=== PATIENT | female | born 1965 | race Caucasian/White ===

== ENCOUNTER 2020-08-22 13:20 | Emergency (ER) | payer MEDICAID, OTHER ==
[~2020-08-22] VITALS: Ht 149 cm; Wt 80.0 kg
[2020-08-22] MEDS ORDERED: methylPREDNISolone 125 MG (Solu-MEDROL) VIAL IVP STA (13:36)
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
[2020-08-22] MEDS ORDERED: RT-ALBUTEROL/IPRATROPIUM 3 ML (DUONEB) VIAL INH ONE (13:45)
[2020-08-22 13:50] LABS: BASOPHILS % (AUTO) 1 % (0-10); EOSINOPHILS % (AUTO) 1 % (0-10); HEMATOCRIT 53 % (35-52); HEMOGLOBIN 17.9 G/DL (11.5-16.0); LYMPHOCYTES # (AUTO) 1.3 X 10^3 (1.0-4.0); LYMPHOCYTES % (AUTO) 24 % (12-44); MEAN CORPUSCULAR HEMOGLOBIN 29 PG (25-34); MEAN CORPUSCULAR HGB CONC 34 G/DL (32-36); MEAN CORPUSCULAR VOLUME 88 FL (80-99); MONOCYTES # (AUTO) 0.5 X 10^3 (0.0-1.0); MONOCYTES % (AUTO) 10 % (0-12); NEUTROPHILS # (AUTO) 3.4 X 10^3 (1.8-7.8); NEUTROPHILS % (AUTO) 64 % (42-75); PLATELET COUNT 180 10^3/uL (130-400); WHITE BLOOD COUNT 5.3 10^3/uL (4.3-11.0)
--- NOTE | 2020-08-22 13:57 | Diagnostic Imaging Report ---
CLINICAL INDICATION: Patient with cough, shortness of breath, nausea, vomiting, and lethargy. EXAM: Portable chest x-ray, upright view. COMPARISONS: None. FINDINGS: Lungs/pleura: There are increased lung markings throughout both lung flores and slight subtle airspace opacities with the left lung base affected the most. This may represent underlying infiltrate. There is no lung consolidation. There is no pneumothorax. There is no pleural effusion. Mediastinum: Unremarkable. Pulmonary vasculature: Unremarkable. Heart: Unremarkable. Bones/extrathoracic soft tissue: There are degenerative spurs involving the spine. Surgical clips are seen overlying the right upper quadrant which could be related to cholecystectomy changes. IMPRESSION: There are subtle airspace opacities and increased lung markings involving both lung flores with the left basilar region affected the most. These findings may represent lung infiltrates. Chest x-ray with PA and lateral views with good inspiratory effort may help better evaluate, if necessary. Dictated by: Dictated on workstation # [id number]
[2020-08-22 14:20] LABS: CARBON DIOXIDE 19 MMOL/L (21-32); CHLORIDE 110 MMOL/L (98-107); POTASSIUM 3.7 MMOL/L (3.6-5.0); SODIUM 139 MMOL/L (135-145)
[2020-08-22 14:21] LABS: ALANINE AMINOTRANSFERASE 11 U/L (0-55); ALBUMIN 4.1 GM/DL (3.2-4.5); ALKALINE PHOSPHATASE 75 U/L (40-136); BILIRUBIN,TOTAL 0.3 MG/DL (0.1-1.0); BUN/CREATININE RATIO 10; CALCIUM 9.2 MG/DL (8.5-10.1); CREATININE SERUM 0.68 MG/DL (0.60-1.30); GFR ESTIMATED > 60; GLUCOSE 112 MG/DL (70-105); TOTAL PROTEIN 7.2 GM/DL (6.4-8.2)
--- NOTE | 2020-08-22 14:40 | Diagnostic Imaging Report ---
EXAMINATION: Chest 2 view HISTORY: Cough and shortness of breath COMPARISON: Chest radiograph 08/22/2020 FINDINGS: Heart size and pulmonary vasculature are normal. There is no consolidation, pleural effusion, or pneumothorax. Opacities seen within the left lung base on prior radiograph are not seen on this exam and likely were related to attenuation from the soft tissues or resolved atelectasis. The osseous structures are intact. IMPRESSION: 1. No acute radiographic abnormality in the chest. Dictated by: Dictated on workstation # [id number]
[2020-08-22 15:35] LABS: INSPIRED O2 2 L; VENTILATOR NO
[2020-08-22 15:36] LABS: ALLENS TEST YES-POS
[2020-08-22 15:42] LABS: ABG BASE EXCESS -2.2 MMOL/L (-2.5-2.5); ABG OXYGEN SATURATION 85 % (94-100); ABG PCO2 37 MMHG (35-45); ABG PH 7.39 (7.37-7.43); ABG PO2 51 MMHG (79-93); ABG TCO2 23.5 MMOL/L (21.0-31.0)
[2020-08-22 16:36] VITALS: BP 132/66
[2020-08-22] MEDS ORDERED: RT-ALBUINH INH ×2 (16:37→17:16)
[2020-08-22] MEDS ORDERED: PRD20T PO ×2 (16:37→17:16)
== END 2020-08-22 16:38 | disposition left against medical advice (07) ==
LOC: ER FS 13:25
DX: J44.1 Chronic obstructive pulmonary disease with (acute) exacerbation (principal); R09.02 Hypoxemia; E66.9 Obesity, unspecified; F17.210 Nicotine dependence, cigarettes, uncomplicated
CPT/HCPCS: 36415; 71045; 71046; 80053; 82805; 85025; 86141

== ENCOUNTER 2020-11-16 11:36 | Emergency (ER) | payer MEDICAID ==
[~2020-11-16] VITALS: Ht 147 cm; Wt 76.1 kg
[~2020-11-16 11:36] MED LIST: PRD20T PO; RT-ALBUINH INH
--- NOTE | 2020-11-16 11:51 | ED General ---
General Chief Complaint: Psych/Social Disorder Stated Complaint: SUICIDAL IDEATION Source of Information: Patient Exam Limitations: No Limitations History of Present Illness Date Seen by Provider: Nov 16, 2020 Time Seen by Provider: 11:45 Initial Comments Patient is a 55-year-old female who presents with suicidal ideation and gesture. Patient states she has a history of depression and has felt lonely and upset that her family does not seem to care about her wash to spend time with her. Patient lives next-door to family and sees them daily but feels as though they do not check up on her and are not concerned about her well being. Patient abraded her right wrist the dog knife with a superficial abrasion only on exam. She denies wanting to or wanting to kill herself but states she feels depressed hurt. Denies hallucinations, delusions, paranoia and homicidal ideation. No recent medical illnesses. Denies drugs and alcohol. She is compliant with medication and sees her therapist every 2 weeks. Timing/Duration: 2-3 Days Severity: Moderate Modifying Factors: improves with Other Associated Systoms: Other Allergies and Home Medications Allergies Coded Allergies: Sulfa (Sulfonamide Antibiotics) (Verified Allergy, Unknown, 08/22/20) divalproex sodium (Verified Allergy, Unknown, 11/16/20) trazodone (Verified Allergy, Unknown, 11/16/20) Patient Home Medication List Home Medication List Reviewed: Yes Albuterol Sulfate (Ventolin Hfa) 1 Puff Puff, 2 PUFF INH Q4H PRN for WHEEZING Prescribed by: SUMAN LOCKWOOD on 08/22/201715 Prednisone (Prednisone) 20 Mg Tab, 40 MG PO DAILY Prescribed by: SUMAN LOCKWOOD on 08/22/20 171 Review of Systems Review of Systems Constitutional: see HPI EENTM: see HPI Respiratory: see HPI Cardiovascular: see HPI Gastrointestinal: see HPI Genitourinary: see HPI Musculoskeletal: see HPI Skin: see HPI Psychiatric/Neurological: See HPI Hematologic/Lymphatic: See HPI Immunological/Allergic: see HPI All Other Systems Reviewed Negative Unless Noted: Yes Past Sfjsuui-Jgjtbe-Gdlcxi Hx Patient Social History Tobacco Use?: Yes Seasonal Allergies Seasonal Allergies: No Past Medical History Surgeries: Yes Gallbladder Respiratory: Yes Asthma, COPD Cardiac: No Neurological: No Genitourinary: No Gastrointestinal: No Musculoskeletal: No Endocrine: No HEENT: No Cancer: No Psychosocial: Yes Anxiety Integumentary: No Physical Exam Vital Signs Vital Signs - First Documented 11/16/20 11:45 Temp 36.6 Pulse 62 Resp 18 B/P (MAP) 114/72 (86) Pulse Ox 96 O2 Delivery Room Air Capillary Refill : Height, Weight, BMI Height: '" Weight: lbs. oz. kg; 36.00 BMI Method: General Appearance: No Apparent Distress, WD/WN Eyes: Bilateral Eye Normal Inspection, Bilateral Eye PERRL, Bilateral Eye EOMI HEENT: PERRL/EOMI Neck: Full Range of Motion, Normal Inspection, Non Tender, Supple Respiratory: Lungs Clear Cardiovascular: Regular Rate, Rhythm Gastrointestinal: Non Tender, Soft Back: Normal Inspection, No CVA Tenderness Neurologic/Psychiatric: Alert, Oriented x3, No Motor/Sensory Deficits, Normal Mood/Affect, Depressed Affect, Other (No HI SI paranoia or hallucinations.) Skin: Normal Color Focused Exam Sepsis Stage: Ruled Out Progress/Results/Core Measures Suspected Sepsis SIRS Temperature: Pulse: Respiratory Rate: Laboratory Tests 11/16/20 12:10: White Blood Count 6.5 Blood Pressure / Mean: Laboratory Tests 11/16/20 12:10: Creatinine 0.83, Platelet Count 204, Total Bilirubin 0.4 Results/Orders Lab Results Laboratory Tests Test 11/16/20 11:50 11/16/20 12:10 11/16/20 12:20 Range/Units Urine Color YELLOW Urine Clarity SLT CLOUDY Urine pH 5.5 5-9 Urine Specific [place] 1.025 H 1.016-1.022 Urine Protein NEGATIVE NEGATIVE Urine Glucose (UA) NEGATIVE NEGATIVE Urine Ketones TRACE H NEGATIVE Urine Nitrite NEGATIVE NEGATIVE Urine Bilirubin NEGATIVE NEGATIVE Urine Urobilinogen 0.2 < = 1.0 MG/DL Urine Leukocyte Esterase NEGATIVE NEGATIVE Urine RBC (Auto) 1+ H NEGATIVE Urine RBC 0-2 /HPF Urine WBC RARE /HPF Urine Squamous Epithelial Cells RARE /HPF Urine Crystals NONE /LPF Urine Bacteria TRACE /HPF Urine Casts NONE /LPF Urine Mucus NEGATIVE /LPF Urine Culture Indicated NO Urine Opiates Screen POSITIVE H NEGATIVE Urine Oxycodone Screen NEGATIVE NEGATIVE Urine Methadone Screen NEGATIVE NEGATIVE Urine Propoxyphene Screen NEGATIVE NEGATIVE Urine Barbiturates Screen NEGATIVE NEGATIVE Ur Tricyclic Antidepressants Screen NEGATIVE NEGATIVE Urine Phencyclidine Screen NEGATIVE NEGATIVE Urine Amphetamines Screen NEGATIVE NEGATIVE Urine Methamphetamines Screen NEGATIVE NEGATIVE Urine Benzodiazepines Screen NEGATIVE NEGATIVE Urine Cocaine Screen NEGATIVE NEGATIVE Urine Cannabinoids Screen POSITIVE H NEGATIVE White Blood Count 6.5 4.3-11.0 10^3/uL Red Blood Count 5.64 H 3.80-5.11 10^6/uL Hemoglobin 16.5 H 11.5-16.0 g/dL Hematocrit 50 35-52 % Mean Corpuscular Volume 89 80-99 fL Mean Corpuscular Hemoglobin 29 25-34 pg Mean Corpuscular Hemoglobin Concent 33 32-36 g/dL Red Cell Distribution Width 12.9 10.0-14.5 % Platelet Count 204 130-400 10^3/uL Mean Platelet Volume 10.2 9.0-12.2 fL Immature Granulocyte % (Auto) 0 % Neutrophils (%) (Auto) 63 42-75 % Lymphocytes (%) (Auto) 30 12-44 % Monocytes (%) (Auto) 6 0-12 % Eosinophils (%) (Auto) 1 0-10 % Basophils (%) (Auto) 1 0-10 % Neutrophils # (Auto) 4.1 1.8-7.8 X 10^3 Lymphocytes # (Auto) 1.9 1.0-4.0 X 10^3 Monocytes # (Auto) 0.4 0.0-1.0 X 10^3 Eosinophils # (Auto) 0.0 0.0-0.3 10^3/uL Basophils # (Auto) 0.0 0.0-0.1 10^3/uL Immature Granulocyte # (Auto) 0.0 0.0-0.1 10^3/uL Sodium Level 139 135-145 MMOL/L Potassium Level 4.1 3.6-5.0 MMOL/L Chloride Level 105 98-107 MMOL/L Carbon Dioxide Level 24 21-32 MMOL/L Anion Gap 10 5-14 MMOL/L Blood Urea Nitrogen 9 7-18 MG/DL Creatinine 0.83 0.60-1.30 MG/DL Estimat Glomerular Filtration Rate 71 BUN/Creatinine Ratio 11 Glucose Level 105 70-105 MG/DL Calcium Level 9.3 8.5-10.1 MG/DL Corrected Calcium 9.4 8.5-10.1 MG/DL Total Bilirubin 0.4 0.1-1.0 MG/DL Aspartate Amino Transf (AST/SGOT) 14 5-34 U/L Alanine Aminotransferase (ALT/SGPT) 12 0-55 U/L Alkaline Phosphatase 73 40-136 U/L Total Protein 6.9 6.4-8.2 GM/DL Albumin 3.9 3.2-4.5 GM/DL Serum Alcohol < 10 <10 MG/DL SARS-CoV-2 RNA (RT-PCR) Not Detected Not Detecte My Orders Orders - MAI DIANE DO Ua Culture If Indicated (11/16/20 11:51) Drug Screen Stat (Urine) (11/16/20 11:51) Alcohol (11/16/20 11:51) Cbc With Automated Diff (11/16/20 11:51) Comprehensive Metabolic Panel (11/16/20 11:51) Ekg Tracing (11/16/20 12:16) Covid 19 Inhouse Test (11/16/20 12:17) Vital Signs/I&O 11/16/20 11:45 Temp 36.6 Pulse 62 Resp 18 B/P (MAP) 114/72 (86) Pulse Ox 96 O2 Delivery Room Air Capillary Refill : Departure Communication (Admissions) EKG: Normal sinus rhythm, no acute ST-T wave changes. Patient remorseful in the ED. States she does not intend to harm her self or wish to at this time. She states she was here with the family members did not check on her and feels as though she needs more emotional support. Mental health screening exam performed by social media strategist. Recommendations are for increased outpatient support and close follow-up. Patient agrees with home safety plan. Return precautions reviewed. Patient verbalizes understanding agreement discharge instructions prior to departure. Impression Primary Impression: Mood disorder Additional Impression: Abrasion of left wrist Disposition: HOME, SELF-CARE Condition: Stable Departure-Patient Inst. Referrals: DAVON CASTELAN MD (PCP/Family) Primary Care Physician Patient Instructions: Depression, Adult ED Add. Discharge Instructions: Please follow home safety plan instructions and follow-up with your case loader operator and therapist later this week. Return to the ED if new or worsening symptoms. All discharge instructions reviewed with patient and/or family. Voiced understanding. MAI DIANE DO Nov 16, 2020 11:51
[2020-11-16 12:12] LABS: AMPHETAMINE SCREEN, URINE NEGATIVE (NEGATIVE); BARBITURATE SCREEN URINE NEGATIVE (NEGATIVE); BENZODIAZEPINES SCREEN URINE NEGATIVE (NEGATIVE); CANNABINOID SCREEN, URINE POSITIVE (NEGATIVE); COCAINE SCREEN URINE NEGATIVE (NEGATIVE); METHADONE STAT NEGATIVE (NEGATIVE); METHAMPHETAMINE SCREEN URINE S NEGATIVE (NEGATIVE); OPIATE SCREEN URINE POSITIVE (NEGATIVE); OXYCODONE STAT NEGATIVE (NEGATIVE); PROPOXYPHENE STAT NEGATIVE (NEGATIVE); TRICYCLIC ANTIDEPRESSANTS SCRE NEGATIVE (NEGATIVE)
[2020-11-16 12:13] LABS: CLARITY,URINE SLT CLOUDY; COLOR,URINE YELLOW; GLUCOSE, URINE (UA) NEGATIVE (NEGATIVE); PH,URINE 5.5 (5-9); PROTEIN,URINE NEGATIVE (NEGATIVE)
[2020-11-16 12:14] LABS: BACTERIA,URINE TRACE /HPF; BILIRUBIN,URINE NEGATIVE (NEGATIVE); KETONES,URINE TRACE (NEGATIVE); LEUKOCYTE ESTERASE ,URINE NEGATIVE (NEGATIVE); NITRITE,URINE NEGATIVE (NEGATIVE); RBC,URINE 0-2 /HPF; SQUAMOUS EPITHELIAL CELL,UR RARE /HPF; WBC,URINE RARE /HPF
[2020-11-16 12:33] LABS: HEMATOCRIT 50 % (35-52); HEMOGLOBIN 16.5 g/dL (11.5-16.0); MEAN CORPUSCULAR HEMOGLOBIN 29 pg (25-34); MEAN CORPUSCULAR HGB CONC 33 g/dL (32-36); MEAN CORPUSCULAR VOLUME 89 fL (80-99); MEAN PLATELET VOLUME 10.2 fL (9.0-12.2); PLATELET COUNT 204 10^3/uL (130-400); WHITE BLOOD COUNT 6.5 10^3/uL (4.3-11.0)
[2020-11-16 12:34] LABS: BASOPHILS % (AUTO) 1 % (0-10); EOSINOPHILS % (AUTO) 1 % (0-10); LYMPHOCYTES # (AUTO) 1.9 X 10^3 (1.0-4.0); LYMPHOCYTES % (AUTO) 30 % (12-44); MONOCYTES # (AUTO) 0.4 X 10^3 (0.0-1.0); MONOCYTES % (AUTO) 6 % (0-12); NEUTROPHILS # (AUTO) 4.1 X 10^3 (1.8-7.8); NEUTROPHILS % (AUTO) 63 % (42-75)
[2020-11-16 12:49] LABS: BUN/CREATININE RATIO 11; CALCIUM 9.3 MG/DL (8.5-10.1); CARBON DIOXIDE 24 MMOL/L (21-32); CHLORIDE 105 MMOL/L (98-107); CREATININE SERUM 0.83 MG/DL (0.60-1.30); GFR ESTIMATED 71; GLUCOSE 105 MG/DL (70-105); POTASSIUM 4.1 MMOL/L (3.6-5.0); SODIUM 139 MMOL/L (135-145)
[2020-11-16 12:50] LABS: ALANINE AMINOTRANSFERASE 12 U/L (0-55); ALBUMIN 3.9 GM/DL (3.2-4.5); ALKALINE PHOSPHATASE 73 U/L (40-136); BILIRUBIN,TOTAL 0.4 MG/DL (0.1-1.0); TOTAL PROTEIN 6.9 GM/DL (6.4-8.2)
[2020-11-16 15:38] VITALS: BP 118/64
== END 2020-11-16 15:35 | disposition home or self-care (01) ==
LOC: EDUNIT# 11:36 → ER FS 11:37
DX: S60.812A Abrasion of left wrist, initial encounter (principal); F39 Unspecified mood [affective] disorder; J44.9 Chronic obstructive pulmonary disease, unspecified; Z20.822 Contact with and (suspected) exposure to COVID-19; W26.8XXA Contact with other sharp object(s), not elsewhere classified, initial encounter
CPT/HCPCS: 36415; 80053; 80306; 81000; 85025; 87636; 93005; 99283; G0480; 80320

== ENCOUNTER 2020-12-31 13:13 | Inpatient (IN) | payer MEDICAID ==
[~2020-12-31] VITALS: Ht 145 cm; Wt 79.4 kg
[2020-12-31] MEDS ORDERED: ONDANSETRON 4 MG/2 ML (SDV) Z0FRAN IV ONE (13:30)
[2020-12-31] MEDS ORDERED: NS IV 1000 ML 1,000 ML IV SCH (13:30)
[2020-12-31] MEDS ORDERED: KETOROLAC 30 MG/ML VIAL IVP STA (13:34)
[2020-12-31] MEDS ORDERED: PANTOPRAZOLE 40 MG (PROTONIX) VIAL IV STA (13:34)
--- NOTE | 2020-12-31 13:34 | ED General ---
General Stated Complaint: N/V/D Source of Information: Patient, EMS, Old Records History of Present Illness Date Seen by Provider: Dec 31, 2020 Time Seen by Provider: 13:13 Initial Comments 55-year-old female presenting by EMS with complaints of severe headache that is in frontal forehead region, nausea, vomiting, diarrhea. She states this is been going on since Saturday. She feels like her symptoms are worsening or not improving. She does not have a vehicle or away to get to the hospital wound clinic. She finally had EMS bring her to the emergency department today. She has had chills but no fever. She does not have a way to check her temperature at home. She denies any pain with urination. She states she is having at least 4 or 5 watery stools a day. She is vomiting whenever she tries to eat or drink anything. She states that she has not been able to keep down her medication for her psychosis. She continues to smoke cigarettes. She has some diffuse abdominal cramping. She denies any blood in her diarrhea or vomiting. She has just watery diarrhea stool. She denies any ill contacts. Timing/Duration: 4-5 Days Severity: Severe Modifying Factors: worse with Movement Associated Systoms: No Chest Pain, No Cough, No Diaphoresis; Fever/Chills (chills without fever), Headaches (frontal forhead headache since Sat28 Dec 2020.), Malaise, Nausea/Vomiting; No Rash, No Seizure; Shortness of Air (chronic from COPD. Continues to smoke. Was on O2 when lived in [place]. ); No Syncope; Weakness (generalized weakness ) Allergies and Home Medications Allergies Coded Allergies: Sulfa (Sulfonamide Antibiotics) (Verified Allergy, Unknown, 08/22/20) divalproex sodium (Verified Allergy, Unknown, 11/16/20) trazodone (Verified Allergy, Unknown, 11/16/20) Patient Home Medication List Home Medication List Reviewed: Yes Albuterol Sulfate (Ventolin Hfa) 1 Puff Puff, 2 PUFF INH Q4H PRN for WHEEZING Prescribed by: SUMAN LOCKWOOD on 08/22/201715 Prednisone (Prednisone) 20 Mg Tab, 40 MG PO DAILY Prescribed by: SUMAN LOCKWOOD on 08/22/201715 Review of Systems Review of Systems Constitutional: chills; No diaphoresis, No dizziness, No fever; malaise, weakness EENTM: no symptoms reported Respiratory: cough (chronic), short of breath (chronic) Cardiovascular: No chest pain Gastrointestinal: see HPI, abdominal pain (diffuse cramping), diarrhea; No melena; nausea, vomiting Genitourinary: decreased output; No dysuria Musculoskeletal: no symptoms reported Skin: No rash Psychiatric/Neurological: See HPI Past [id number] Hx Patient Social History Tobacco Use?: Yes Tobacco type used: Cigarettes Smoking Status: Current Everyday Smoker Seasonal Allergies Seasonal Allergies: No Past Medical History Surgery/Hospitalization HX: COPD Surgeries: Yes Gallbladder, Hysterectomy Respiratory: Yes Asthma, COPD Cardiac: No Neurological: No Genitourinary: No Gastrointestinal: No Musculoskeletal: No Endocrine: No HEENT: No Cancer: No Psychosocial: Yes Anxiety Integumentary: No Physical Exam Vital Signs Vital Signs - First Documented 12/31/20 13:14 Temp 36.4 Pulse 84 Resp 19 B/P (MAP) 134/85 (101) Pulse Ox 83 O2 Delivery Nasal Cannula O2 Flow Rate 2.00 Capillary Refill : Height, Weight, BMI Height: '" Weight: lbs. oz. kg; 35.00 BMI Method: General Appearance: No Apparent Distress HEENT: PERRL/EOMI, Pharynx Normal Neck: Full Range of Motion, Normal Inspection, Non Tender, Supple Respiratory: Chest Non Tender, No Accessory Muscle Use, No Respiratory Distress, Decreased Breath Sounds Cardiovascular: Regular Rate, Rhythm, Normal Peripheral Pulses Gastrointestinal: Normal Bowel Sounds, No Pulsatile Mass, Soft; No Distended, No Guarding, No Rebound; Tenderness (diffuse mild tenderness worse in midline) Rectal: Deferred Extremity: Normal Capillary Refill, Normal Inspection, No Pedal Edema Neurologic/Psychiatric: Alert, Oriented x3, animal anatomist II-XII Norm as Tested Skin: Normal Color, Warm/Dry Focused Exam Lactate Level 12/31/20 13:45: Lactic Acid Level 0.98 Lactic Acid Level Laboratory Tests Test 12/31/20 13:45 Lactic Acid Level 0.98 MMOL/L (0.50-2.00) Progress/Results/Core Measures Suspected Sepsis SIRS Temperature: Pulse: Respiratory Rate: Laboratory Tests 12/31/20 13:30: White Blood Count 3.0L Blood Pressure / Mean: 12/31/20 13:45: Lactic Acid Level 0.98 Laboratory Tests 12/31/20 13:30: Creatinine 0.68, INR Comment 1.0, Platelet Count 108L, Total Bilirubin 0.3 Results/Orders Lab Results Laboratory Tests Test 12/31/20 13:30 12/31/20 13:45 12/31/20 13:48 12/31/20 15:29 Range/Units White Blood Count 3.0 L 4.3-11.0 10^3/uL Red Blood Count 6.19 H 3.80-5.11 10^6/uL Hemoglobin 18.3 H 11.5-16.0 g/dL Hematocrit 53 H 35-52 % Mean Corpuscular Volume 85 80-99 fL Mean Corpuscular Hemoglobin 30 25-34 pg Mean Corpuscular Hemoglobin Concent 35 32-36 g/dL Red Cell Distribution Width 13.2 10.0-14.5 % Platelet Count 108 L 130-400 10^3/uL Mean Platelet Volume 10.7 9.0-12.2 fL Immature Granulocyte % (Auto) 0 % Neutrophils (%) (Auto) 61 42-75 % Lymphocytes (%) (Auto) 30 12-44 % Monocytes (%) (Auto) 8 0-12 % Eosinophils (%) (Auto) 0 0-10 % Basophils (%) (Auto) 1 0-10 % Neutrophils # (Auto) 1.8 1.8-7.8 X 10^3 Lymphocytes # (Auto) 0.9 L 1.0-4.0 X 10^3 Monocytes # (Auto) 0.3 0.0-1.0 X 10^3 Eosinophils # (Auto) 0.0 0.0-0.3 10^3/uL Basophils # (Auto) 0.0 0.0-0.1 10^3/uL Percent Immature Platelet Fraction 3.0 0.0-7.6 % Prothrombin Time 13.6 12.2-14.7 SEC INR Comment 1.0 0.8-1.4 Activated Partial Thromboplast Time 34 24-35 SEC Sodium Level 137 135-145 MMOL/L Potassium Level 3.3 L 3.6-5.0 MMOL/L Chloride Level 104 98-107 MMOL/L Carbon Dioxide Level 23 21-32 MMOL/L Anion Gap 10 5-14 MMOL/L Blood Urea Nitrogen 9 7-18 MG/DL Creatinine 0.68 0.60-1.30 MG/DL Estimat Glomerular Filtration Rate 90 BUN/Creatinine Ratio 13 Glucose Level 148 H 70-105 MG/DL Calcium Level 8.8 8.5-10.1 MG/DL Corrected Calcium 8.7 8.5-10.1 MG/DL Total Bilirubin 0.3 0.1-1.0 MG/DL Aspartate Amino Transf (AST/SGOT) 22 5-34 U/L Alanine Aminotransferase (ALT/SGPT) 13 0-55 U/L Alkaline Phosphatase 73 40-136 U/L Troponin I < 0.30 <0.30 NG/ML C-Reactive Protein 5.04 H <0.50 MG/DL Total Protein 7.2 6.4-8.2 GM/DL Albumin 4.1 3.2-4.5 GM/DL Serum Alcohol < 10 <10 MG/DL Lactic Acid Level 0.98 0.50-2.00 MMOL/L Influenza Type A Antigen NEGATIVE NEGATIVE Influenza Type B Antigen NEGATIVE NEGATIVE Urine Color YELLOW Urine Clarity CLEAR Urine pH 6.0 5-9 Urine Specific [place] 1.010 L 1.016-1.022 Urine Protein 1+ H NEGATIVE Urine Glucose (UA) NEGATIVE NEGATIVE Urine Ketones NEGATIVE NEGATIVE Urine Nitrite NEGATIVE NEGATIVE Urine Bilirubin NEGATIVE NEGATIVE Urine Urobilinogen 0.2 < = 1.0 MG/DL Urine Leukocyte Esterase NEGATIVE NEGATIVE Urine RBC (Auto) 1+ H NEGATIVE Urine RBC 5-10 H /HPF Urine WBC 0-2 /HPF Urine Squamous Epithelial Cells 5-10 /HPF Urine Crystals NONE /LPF Urine Bacteria FEW H /HPF Urine Casts NONE /LPF Urine Mucus NEGATIVE /LPF Urine Culture Indicated NO Urine Opiates Screen NEGATIVE NEGATIVE Urine Oxycodone Screen NEGATIVE NEGATIVE Urine Methadone Screen NEGATIVE NEGATIVE Urine Propoxyphene Screen NEGATIVE NEGATIVE Urine Barbiturates Screen NEGATIVE NEGATIVE Ur Tricyclic Antidepressants Screen NEGATIVE NEGATIVE Urine Phencyclidine Screen NEGATIVE NEGATIVE Urine Amphetamines Screen NEGATIVE NEGATIVE Urine Methamphetamines Screen NEGATIVE NEGATIVE Urine Benzodiazepines Screen NEGATIVE NEGATIVE Urine Cocaine Screen NEGATIVE NEGATIVE Urine Cannabinoids Screen POSITIVE H NEGATIVE My Orders Orders - SUMAN LOCKWOOD MD Monitor-Rhythm Ecg Trace Only (12/31/20 13:26) Ed Iv/Invasive Line Start (12/31/20 13:26) Cbc With Automated Diff (12/31/20 13:26) Comprehensive Metabolic Panel (12/31/20 13:26) Crp Fs (12/31/20 13:26) Troponin I Fs (12/31/20 13:26) Protime With Inr (12/31/20:) Partial Thromboplastin Time (12/31/20:) Ekg Tracing (12/31/20:) Ns Iv 1000 Ml (Sodium Chloride 0.9%) (12/31/20 13:30) Ondansetron Injection (Zofran Injectio (12/31/20 13:30) Blood Culture (12/31/20:) Ua Culture If Indicated (12/31/20:) Drug Screen Stat (Urine) (12/31/20:) Alcohol (12/31/20:) Covid 19 Inhouse Test (12/31/20:) Influenza A & B Antigens (12/31/20:) Lactic Acid Analyzer (12/31/20:) O2 (12/31/20 13:30) Ct Judi Chest/Noang Abd-Pelv W (12/31/20 13:30) Ct Head Wo (12/31/20 13:34) Ketorolac Injection (Toradol Injection) (12/31/20 13:34) Pantoprazole Injection (Protonix Injecti (12/31/20 13:34) Iohexol Injection (Omnipaque 350 Mg/Ml 1 (12/31/20 13:45) Received Contrast (Hold Metformin- Contr (12/31/20 13:45) Sodium Chloride Flush (Catheter Flush Sy (12/31/20 13:45) Ns (Ivpb) (Sodium Chloride 0.9% Ivpb Bag (12/31/20 13:45) Azithromycin Injection (Zithromax Inject (12/31/20 16:42) Ns Iv 1000 Ml (Sodium Chloride 0.9%) (12/31/20 16:42) Dexamethasone Injection (Decadron Inje (12/31/20 16:42) Fentanyl Inj (Sublimaze Injection) (12/31/20 16:42) Cefepime Injection (Maxipime Injection) (12/31/20 16:51) Arterial Blood Gas (12/31/20 16:51) Medications Given in ED Current Medications Medications Dose Ordered Sig/Karla Route Start Time Stop Time Status Last Admin Dose Admin Iohexol 100 ml ONCE ONCE IV 12/31/20 13:45 12/31/20 13:46 DC 12/31/20 14:25 100 ML Ondansetron HCl 4 mg ONCE ONCE IV 12/31/20 13:30 12/31/20 13:31 DC 12/31/20 13:42 4 MG Sodium Chloride 10 ml NEEDED PRN IV 12/31/20 13:45 12/31/20 14:25 10 ML Sodium Chloride 100 ml ONCE ONCE IV 12/31/20 13:45 12/31/20 13:46 DC 12/31/20 14:25 100 ML Vital Signs/I&O 12/31/20 12/31/20 12/31/20 13:14 13:15 18:05 Temp 36.4 Pulse 84 69 Resp 19 17 B/P (MAP) 134/85 (101) 106/51 Pulse Ox 83 93 95 O2 Delivery Nasal Cannula Nasal Cannula Nasal Cannula O2 Flow Rate 2.00 2.00 2.00 Capillary Refill : Progress Note #1: Progress Note With complaint of chills, frontal forehad headache, nausea, vomiting and diarrhea will obtain Covid swab and influenza swab. Give IVF for hydration. Check labs to evaluate blood count, electrolytes, renal and hepatic function. ECG with her complaint of shortness of breath and not being able to keep anything down for 3 days. UA to help assess hydration status. Blood cultures and lactic acid since she reports chills and abdominal cramping with her n/v/d. Give IVF for hydration, Zofran for nausea, Toradol for pain. CT scan of head since she reports this is severe. CT scan of chest angiography with her complaint of short of breath, CT abd/pelvis with contrast to evaluate for diverticulitis, colitis, appendicitis, bowel obstruction, abdominal abscess. Progress Note #2: Progress Note Labs shows low white blood cell count but could be consistent with a viral infection. Her influenza swab was negative. Her hemoglobin was elevated to 18.3 which could go along with her being a smoker as well as possibly a little hemoconcentrated since she reports been able to keep anything down for the last 3 days. Her chemistry panel had mild hypokalemia of 3.3. Otherwise her kidney function and hepatic function appeared stable. Her cardiac enzymes did not show acute significant abnormality but her CRP was elevated. Her lactic acid was normal. The CT of the head showed sphenoid sinusitis. Her CT of the chest abdomen and pelvis showed no pulmonary emboli or acute process in the abdomen and pelvis but she did have groundglass patchy infiltrates in bilateral upper lobes of the lungs concerning for Covid. She was tolerating some p.o. intake here in the ED however she was continuing to require oxygen to maintain sats above 87-88%. Progress Note #3: Time: 16:50 Progress Note As patient has signs of infiltrate on her lungs will send gluing machine offbearer to have the Covid swab run this afternoon. We will also start antibiotics to help cover for potential atypical infection with her COPD. Since she is requiring oxygen IV fluids will contact the provider for [facility] since she follows with Dr. Castelan. Discussed with Dr. Arzola and she accepted the patient for admission. She recommended cefepime instead of Rocephin for antibiotic coverage. She was okay with the Zithromax. She also requested at least a cardiac stepdown bed to be able to monitor the patient closer since she was a smoker and had COPD if this was Covid she certainly was at higher risk of decompensating. ECG Initial ECG Impression Date: Dec 31, 2020 Initial ECG Impression Time: 13:35 Initial ECG Rate: 77 Initial ECG Rhythm: Normal Sinus Initial ECG Comparisson: Unchanged Comment Normal sinus rhythm with a heart rate of 77 bpm. NE interval [address] elevation. QT interval 387 ms with a QTc interval 450 ms. Appears similar to prior tracings in the system. Diagnostic Imaging Diagonstic Imaging: CT Plain Films/CT/US/NM/MRI: head Comments [facility] [place], [place] NAME: LUCIEN RICHARDSON [facility] REC#: [id number] PT STATUS: REG ER : 1965 PHYSICIAN: SUMAN LOCKWOOD MD ADMIT DATE: 12/31/20/ER FS Signed Date of Exam:12/31/20 CT HEAD WO EXAMINATION: CT head without contrast. TECHNIQUE: Multiple contiguous axial images were obtained through the brain without the use of intravenous contrast. All CT scans use one or more of the following dose optimizing techniques: automated exposure control, MA and/or KvP adjustment based on patient size and exam type or iterative reconstruction. HISTORY: Frontal headache. COMPARISON: None available. FINDINGS: No large acute territorial ischemia, mass, or hemorrhage. No midline shift or mass effect. The ventricles, cortical sulci, and basilar cisterns are patent and unremarkable. The orbits are normal. Retained secretions are seen in the left maxillary sinus with mild mucosal thickening throughout the paranasal sinuses. Frothy secretions are seen in the right sphenoid sinus. Mastoid air cells are clear. No soft tissue abnormality is seen. No osseus lesions or fractures are seen. IMPRESSION: 1. No large acute territorial ischemia, mass, or hemorrhage. 2. Findings suggestive of acute sinusitis involving the right sphenoid sinus. Dictated by: Dictated on workstation # [id number] Dict: 12/31/20 1428 Trans: 12/31/20 1438 [facility] [id number] Interpreted by: BRAD MANLEY DO Electronically signed by: BRAD MANLEY DO 12/31/208 Reviewed: Reviewed by Ok Diagonstic Imaging: CT Plain Films/CT/US/NM/MRI: chest, abdomen, pelvis Comments [facility] [place] NAME: LUCIEN RICHARDSON [facility] REC#: [id number] PT STATUS: REG ER : 1965 PHYSICIAN: SUMAN LOCKWOOD MD ADMIT DATE: 12/31/20/ER FS Signed Date of Exam:12/31/20 CT JUDI CHEST/NOANG ABD-PELV W INDICATION: hypoxia, sob, n/v/d, chills EXAM: CTA chest, abdomen and pelvis TECHNIQUE: Thin axial sections through the chest, abdomen and pelvis are obtained following intravenous contrast bolus. Multiplanar MIP images were reconstructed and reviewed. All CT scans use one or more of the following dose optimizing techniques: automated exposure control, MA and/or KvP adjustment based on patient size and exam type or iterative reconstruction. INDICATION: Hypoxia, shortness of breath, nausea vomiting and diarrhea COMPARISON: None available. FINDINGS: CTA CHEST: No pulmonary emboli. Normal caliber thoracic aorta without dissection. Heart is normal in size without pericardial effusion. No pleural effusion or pneumothorax. No intrathoracic lymphadenopathy. Patchy groundglass opacities are present in the upper lobes. No features of pulmonary edema. No concerning focal osseous lesions. CT ABDOMEN AND PELVIS: No free intraperitoneal air or fluid. The liver, spleen, pancreas and adrenals are normal. Status post cholecystectomy. Horseshoe kidney is present without renal mass or obstruction. No renal or ureteral stones. Urinary bladder is normal. Hysterectomy. No adnexal mass. No pericolonic inflammatory change to indicate diverticulitis or colitis. Appendix is normal. No abdominal or pelvic lymphadenopathy. Normal caliber abdominal aorta. IMPRESSION: 1. No acute pulmonary emboli or aortic dissection. 2. Patchy ground glass opacities in the bilateral upper lobes most compatible with infection and could potentially be COVID 19. 3. No acute intra-abdominal process. Report was faxed to [facility] Infection Control by radha at 2:38pm. Dictated by: Dictated on workstation # [id number] Dict: 12/31/20 1432 Trans: 12/31/20 1510 [facility] [id number] Interpreted by: PEBBLES HOLDEN MD Electronically signed by: PEBBLES HOLDEN MD 12/31/20 1510 Reviewed: Reviewed by Ok Departure Communication (Admissions) Time/Spoke to Admitting Phy: 16:50 D/w Dr. Arzola and she accepted pt for admit. Will add on ABG. She requested Cefepime with Zithromax for antibiotic coverage for lung infiltrate seen on CT. PUI for Covid and COPD exacerbation with sphenoid sinusitis. Will place in Cardiac Step down or ICU bed Impression Primary Impression: Hypoxia Additional Impressions: Severe frontal headaches Nausea vomiting and diarrhea COPD with exacerbation Infiltrate of upper lobe of right lung present on imaging study Infiltrate of upper lobe of left lung present on imaging study Person under investigation for severe acute respiratory syndrome coronavirus 2 (SARS-CoV-2) infection Sphenoid sinusitis Qualified Codes: J01.30 - Acute sphenoidal sinusitis, unspecified Disposition: 30 STILL A PATIENT Condition: Stable Admissions Decision to Admit Reason: Admit from ER (General) Decision to Admit/Date: Dec 31, 2020 Time/Decision to Admit Time: 16:50 Departure-Patient Inst. Referrals: DAVON CASTELAN MD (PCP/Family) Primary Care Physician SUMAN LOCKWOOD MD Dec 31, 2020 13:34
[2020-12-31 13:37] LABS: BASOPHILS % (AUTO) 1 % (0-10); EOSINOPHILS % (AUTO) 0 % (0-10); HEMATOCRIT 53 % (35-52); HEMOGLOBIN 18.3 g/dL (11.5-16.0); LYMPHOCYTES # (AUTO) 0.9 X 10^3 (1.0-4.0); LYMPHOCYTES % (AUTO) 30 % (12-44); MEAN CORPUSCULAR HEMOGLOBIN 30 pg (25-34); MEAN CORPUSCULAR HGB CONC 35 g/dL (32-36); MEAN CORPUSCULAR VOLUME 85 fL (80-99); MEAN PLATELET VOLUME 10.7 fL (9.0-12.2); MONOCYTES # (AUTO) 0.3 X 10^3 (0.0-1.0); MONOCYTES % (AUTO) 8 % (0-12); NEUTROPHILS # (AUTO) 1.8 X 10^3 (1.8-7.8); NEUTROPHILS % (AUTO) 61 % (42-75); PLATELET COUNT 108 10^3/uL (130-400)
[2020-12-31] MEDS ORDERED: HOLD METFORMIN - RECEIVED CONTRAST 20 ML VIAL IV SCH (13:45)
[2020-12-31] MEDS ORDERED: CATHETER FLUSH 10 ML SYR IV PRN (13:45)
[2020-12-31] MEDS ORDERED: IOHEXOL 350 MG/ML 100 ML (OMNIPAQUE 350) VIAL IV ONE (13:45)
[2020-12-31] MEDS ORDERED: NS 100 ML (IVPB) BAG IV ONE (13:45)
[2020-12-31 13:48] LABS: PROTHROMBIN TIME PATIENT 13.6 SEC (12.2-14.7)
[2020-12-31 13:56] LABS: ALANINE AMINOTRANSFERASE 13 U/L (0-55); ALBUMIN 4.1 GM/DL (3.2-4.5); ALKALINE PHOSPHATASE 73 U/L (40-136); BILIRUBIN,TOTAL 0.3 MG/DL (0.1-1.0); BUN/CREATININE RATIO 13; CALCIUM 8.8 MG/DL (8.5-10.1); CARBON DIOXIDE 23 MMOL/L (21-32); CHLORIDE 104 MMOL/L (98-107); CREATININE SERUM 0.68 MG/DL (0.60-1.30); GFR ESTIMATED 90; GLUCOSE 148 MG/DL (70-105); POTASSIUM 3.3 MMOL/L (3.6-5.0); SODIUM 137 MMOL/L (135-145); TOTAL PROTEIN 7.2 GM/DL (6.4-8.2)
--- NOTE | 2020-12-31 14:36 | Diagnostic Imaging Report ---
EXAMINATION: CT head without contrast. TECHNIQUE: Multiple contiguous axial images were obtained through the brain without the use of intravenous contrast. All CT scans use one or more of the following dose optimizing techniques: automated exposure control, MA and/or KvP adjustment based on patient size and exam type or iterative reconstruction. HISTORY: Frontal headache. COMPARISON: None available. FINDINGS: No large acute territorial ischemia, mass, or hemorrhage. No midline shift or mass effect. The ventricles, cortical sulci, and basilar cisterns are patent and unremarkable. The orbits are normal. Retained secretions are seen in the left maxillary sinus with mild mucosal thickening throughout the paranasal sinuses. Frothy secretions are seen in the right sphenoid sinus. Mastoid air cells are clear. No soft tissue abnormality is seen. No osseus lesions or fractures are seen. IMPRESSION: 1. No large acute territorial ischemia, mass, or hemorrhage. 2. Findings suggestive of acute sinusitis involving the right sphenoid sinus. Dictated by: Dictated on workstation # [id number]
--- NOTE | 2020-12-31 14:38 | Diagnostic Imaging Report ---
INDICATION: hypoxia, sob, n/v/d, chills EXAM: CTA chest, abdomen and pelvis TECHNIQUE: Thin axial sections through the chest, abdomen and pelvis are obtained following intravenous contrast bolus. Multiplanar MIP images were reconstructed and reviewed. All CT scans use one or more of the following dose optimizing techniques: automated exposure control, MA and/or KvP adjustment based on patient size and exam type or iterative reconstruction. INDICATION: Hypoxia, shortness of breath, nausea vomiting and diarrhea COMPARISON: None available. FINDINGS: CTA CHEST: No pulmonary emboli. Normal caliber thoracic aorta without dissection. Heart is normal in size without pericardial effusion. No pleural effusion or pneumothorax. No intrathoracic lymphadenopathy. Patchy groundglass opacities are present in the upper lobes. No features of pulmonary edema. No concerning focal osseous lesions. CT ABDOMEN AND PELVIS: No free intraperitoneal air or fluid. The liver, spleen, pancreas and adrenals are normal. Status post cholecystectomy. Horseshoe kidney is present without renal mass or obstruction. No renal or ureteral stones. Urinary bladder is normal. Hysterectomy. No adnexal mass. No pericolonic inflammatory change to indicate diverticulitis or colitis. Appendix is normal. No abdominal or pelvic lymphadenopathy. Normal caliber abdominal aorta. IMPRESSION: 1. No acute pulmonary emboli or aortic dissection. 2. Patchy ground glass opacities in the bilateral upper lobes most compatible with infection and could potentially be COVID 19. 3. No acute intra-abdominal process. Report was faxed to [facility]RN Infection Control by lexii at 2:38pm. Dictated by: Dictated on workstation # [id number]
[2020-12-31 15:41] LABS: BACTERIA,URINE FEW /HPF; BILIRUBIN,URINE NEGATIVE (NEGATIVE); CLARITY,URINE CLEAR; COLOR,URINE YELLOW; GLUCOSE, URINE (UA) NEGATIVE (NEGATIVE); KETONES,URINE NEGATIVE (NEGATIVE); LEUKOCYTE ESTERASE ,URINE NEGATIVE (NEGATIVE); NITRITE,URINE NEGATIVE (NEGATIVE); PROTEIN,URINE 1+ (NEGATIVE); WBC,URINE 0-2 /HPF
[2020-12-31 15:47] LABS: AMPHETAMINE SCREEN, URINE NEGATIVE (NEGATIVE); BARBITURATE SCREEN URINE NEGATIVE (NEGATIVE); BENZODIAZEPINES SCREEN URINE NEGATIVE (NEGATIVE); CANNABINOID SCREEN, URINE POSITIVE (NEGATIVE); COCAINE SCREEN URINE NEGATIVE (NEGATIVE); METHADONE STAT NEGATIVE (NEGATIVE); METHAMPHETAMINE SCREEN URINE S NEGATIVE (NEGATIVE); OPIATE SCREEN URINE NEGATIVE (NEGATIVE); OXYCODONE STAT NEGATIVE (NEGATIVE); PROPOXYPHENE STAT NEGATIVE (NEGATIVE); TRICYCLIC ANTIDEPRESSANTS SCRE NEGATIVE (NEGATIVE)
[2020-12-31] MEDS ORDERED: cefTRIAXone 1,000 MG in WATER (STERILE) FOR INJECTION 10 ML IV STA (16:42)
[2020-12-31] MEDS ORDERED: NS IV 1000 ML 1,000 ML IV STA (16:42)
[2020-12-31] MEDS ORDERED: AZITHROMYCIN INJECTION 500 MG in NS (IVPB) 250 ML IV STA (16:42)
[2020-12-31] MEDS ORDERED: fentaNYL INJ 100 MCG/2 ML AMP IVP STA (16:42)
[2020-12-31] MEDS ORDERED: CEFEPIME INJECTION 1,000 MG in WATER (STERILE) FOR INJECTION 10 ML IV STA (16:51)
[2020-12-31] MEDS ORDERED: morphine INJ 10 MG/ML 1ML (SYR OR VIAL) IVP PRN (18:45)
[2020-12-31] MEDS ORDERED: diphenhydrAMINE 25 MG TAB (BENADRYL) PO PRN (18:45)
[2020-12-31] MEDS ORDERED: RT-ALBUTEROL HFA 8.5 GM INHALER IH PRN ×2 (18:45→20:45)
[2020-12-31] MEDS ORDERED: ONDANSETRON 4 MG/2 ML (SDV) Z0FRAN IVP PRN (18:45)
[2020-12-31] MEDS ORDERED: HYDROcodone/APAP 5 MG/325 MG (LORTAB) TAB PO PRN (18:45)
[2020-12-31] MEDS ORDERED: ACETAMINOPHEN 325 MG TABLET PO PRN (18:45)
[2020-12-31] MEDS ORDERED: ACET/BUTAL/CAFF (FIORICET) TAB PO PRN (19:30)
--- NOTE | 2020-12-31 19:50 | Tele-ICU Consult ---
History of Present Illness History of Present Illness Date Seen by Provider: Dec 31, 2020 Time Seen by Provider: 19:44 Date of Admission 12/31/20 History of Present Illness 55-year-old female presenting by EMS with complaints of severe headache that is in frontal forehead region, nausea, vomiting, diarrhea. She states this is been going on since Saturday. She feels like her symptoms are worsening or not improving. She does not have a vehicle or away to get to the hospital wound clinic. She finally had EMS bring her to the emergency department today. She has had chills but no fever. She does not have a way to check her temperature at home. She denies any pain with urination. She states she is having at least 4 or 5 watery stools a day. She is vomiting whenever she tries to eat or drink anything. She states that she has not been able to keep down her medication for her psychosis. She continues to smoke cigarettes. She has some diffuse abdominal cramping. She denies any blood in her diarrhea or vomiting. She has just watery diarrhea stool. She denies any ill contacts. HER COVID -[address] HEAD REVEALED SPHENOID SINUSITIS. she is admitted to icu for close monitoring Allergies and Home Medications Allergies Coded Allergies: Sulfa (Sulfonamide Antibiotics) (Verified Allergy, Unknown, 08/22/20) divalproex sodium (Verified Allergy, Unknown, 11/16/20) trazodone (Verified Allergy, Unknown, 11/16/20) Home Medications Albuterol Sulfate 1 Puff Puff, 2 PUFF INH Q4H PRN for WHEEZING 1 PUFF = 90 MCG Prescribed by: SUMAN LOCKWOOD on 08/22/201715 Prednisone 20 Mg Tab, 40 MG PO DAILY Prescribed by: SUMAN DRAKERT on 08/22/201715 Past Medical/Social/Family Hx Patient Social History Tobacco Use?: Yes Tobacco type used: Cigarettes Smoking Status: Current Everyday Smoker Smokeless Tobacco Frequency: Never a User Use of E-Cig and/or Vaping dev: No E-Cig and/or Vaping Freq: Never a User Substance use?: Yes Substance type: Marijuana Substance frequency: Daily Alcohol Use?: No Pt stated abuse/neglect: No Current Status status: No status: No Advance Directives: No Communicates: Verbally Primary Language: Libyan Preferred Spoken Language: Libyan Sensory deficits: Vision impairment Implanted or Applied Medical D: None Review of Systems Constitutional: see HPI Other per attending physician Sepsis Event Evaluation Height, Weight, BMI Height: '" Weight: lbs. oz. kg; 36.00 BMI Method: Exam Exam Patient acknowledged, consented, and participated in this virtual visit which was conducted using real time audio/video Vital Signs Date Time Temp Pulse Resp B/P (MAP) Pulse Ox O2 Delivery O2 Flow Rate FiO2 12/31/20 19:35 65 33 110/79 Nasal Cannula 4.00 12/31/20 18:05 69 17 106/51 95 Nasal Cannula 2.00 12/31/20 13:15 93 Nasal Cannula 2.00 12/31/20 13:14 36.4 84 19 134/85 (101) 83 Nasal Cannula 2.00 Height & Weight Height: '" Weight: lbs. oz. 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 covid-19 pneumonia 2.shenoid sinusitis causing hed ache. 3. possible bacterial pneumonia 4. moderate obesity. 5. mild hypotension plan 1. Hydrate pt. 2. ivabx's 3. iv decadron 4.dvt prophylaxis. 5. monitor blood sugars. 6.fioriocet for headache. d/w rn.and pt thanks for the consult Critical Care: Critically Ill Patient Time spent with patient (mins): 45 BRUCE GANDHI MD Dec 31, 2020 19:50
[2020-12-31 20:38] VITALS: BP 134/85
[2020-12-31] MEDS ORDERED: BUSP10TA95 PO (20:46)
[2020-12-31] MEDS ORDERED: ZIPR60CA18 PO (20:46)
[2020-12-31] MEDS ORDERED: PRAZ2CAP2 PO (20:46)
[2020-12-31] MEDS ORDERED: NICO-685 TD (20:46)
[2020-12-31] MEDS ORDERED: BUDE10.22 IH (20:46)
[2020-12-31] MEDS ORDERED: SERT-414 PO (20:46)
[2020-12-31] MEDS ORDERED: busPIRone 10 MG (BUSPAR) TAB PO PRN (21:00)
[2020-12-31] MEDS ORDERED: RT-ALBUTEROL SULF 2.5 MG/3 ML PRE-MIX VIAL INH PRN (21:00)
[2020-12-31] MEDS: POTASSIUM CL 10MEQ/50ML IVPB 50 ML IV SCH (23:16)
[2020-12-31] MEDS: NS IV 1000 ML 1,000 ML IV SCH (23:16)
[2020-12-31] MEDS: CEFEPIME INJECTION 1,000 MG in WATER (STERILE) FOR INJECTION 10 ML IV SCH (23:17)
[2020-12-31] MEDS: FAMOTIDINE 20 MG (PEPCID) TABLET PO SCH (23:17)
[2020-12-31] MEDS: ENOXAPARIN 40 MG/0.4 ML (LOVENOX) SYR SC SCH (23:18)
[2021-01-01] MEDS: POTASSIUM CL 10MEQ/50ML IVPB 50 ML IV SCH ×3 (01:22→04:04)
[2021-01-01] MEDS: RT-ALBUTEROL HFA 8.5 GM INHALER IH SCH ×4 (02:56→22:13)
[2021-01-01] MEDS: CEFEPIME INJECTION 1,000 MG in WATER (STERILE) FOR INJECTION 10 ML IV SCH ×4 (04:03→23:43)
[2021-01-01] MEDS: NS IV 1000 ML 1,000 ML IV SCH (05:45)
[2021-01-01] MEDS: ZIPRASIDONE 20 MG (GEODON) CAP PO SCH (08:18)
[2021-01-01] MEDS: FAMOTIDINE 20 MG (PEPCID) TABLET PO SCH ×2 (08:18→20:35)
[2021-01-01] MEDS: SERTRALINE 100 MG (ZOLOFT) TAB PO SCH (08:18)
[2021-01-01] MEDS: PANTOPRAZOLE 40 MG (PROTONIX) TAB PO SCH (08:19)
[2021-01-01] MEDS: NICOTINE 21 MG (NICODERM) PATCH TD SCH (08:19)
[2021-01-01] MEDS ORDERED: PRAZOSIN 2 MG PO SCH (09:00)
[2021-01-01] MEDS ORDERED: predniSONE 20 MG TAB PO SCH (09:00)
[2021-01-01] MEDS: IBUPROFEN TABLET 200 MG TAB PO PRN ×2 (10:44→20:38)
[2021-01-01] MEDS: PRAZOSIN 1 MG CAPSULE (MINIPRESS) NON-FORMULARY PO SCH (10:44)
--- NOTE | 2021-01-01 10:57 | History & Physical-Hospitalist ---
History of Present Illness HPI/Chief Complaint Chief complaint: COVID-19 pneumonia History present illness: This is a 55-year-old white female clinic patient of [facility] who has a past medical history of COPD who presents to ICU from [facility] after being diagnosed with COVID-19 pneumonia. She does not wear oxygen or CPAP at home. She continues to smoke. Patient was placed on empiric antibiotics for bacterial pneumonia along with Decadron and Lovenox and will be transferred to the floor for since she remains on 1 L of oxygen but does desat with activity. Cefepime and azithromycin maintained. We will advance diet. Bowels move x2. Ibuprofen ordered. Source: patient, RN/MD Exam Limitations: no limitations Date Seen 01/01/21 Time Seen by a Provider: 10:30 Attending Physician Muna Arzola Pankaj K MD Referring Physician Date of Admission Dec 31, 2020 at 18:51 Home Medications & Allergies Home Medications Reviewed patient Home Medication Reconciliation performed by pharmacy medication reconciliations photo technician and/or nursing. Patients Allergies have been reviewed. Allergies Allergies Coded Allergies Sulfa (Sulfonamide Antibiotics) (Verified Allergy, Unknown, 08/22/20) divalproex sodium (Verified Allergy, Unknown, 11/16/20) trazodone (Verified Allergy, Unknown, 11/16/20) Past Sdlkxdk-Phhsse-Kbmeig Hx Patient Social History Marrital Status: single Employed/Student: unemployed Tobacco Use?: Yes Tobacco type used: Cigarettes Smoking Status: Current Everyday Smoker Smokeless Tobacco Frequency: Never a User Use of E-Cig and/or Vaping dev: No Use of E-Cig and/or Vaping Cheng: Never a User Substance use?: Yes Substance type: Marijuana Substance frequency: Daily Alcohol Use?: No Pt feels they are or have been: No Seasonal Allergies Seasonal Allergies: No Current Status status: No status: No Advance Directives: No Communicates: Verbally Primary Language: Marshallese Preferred Spoken Language: Marshallese Sensory deficits: Vision impairment Implanted or Applied Medical D: None Past Medical History Surgeries: Gallbladder, Hysterectomy Asthma, COPD Anxiety Review of Systems Constitutional: see HPI, malaise, weakness EENTM: no symptoms reported Respiratory: cough, dyspnea on exertion Cardiovascular: no symptoms reported Gastrointestinal: no symptoms reported Genitourinary: no symptoms reported Musculoskeletal: no symptoms reported Skin: no symptoms reported Psychiatric/Neurological: No Symptoms Reported All Other Systems Reviewed Negative Unless Noted: Yes Physical Exam Physical Exam Vital Signs Vital Signs - First Documented 12/31/20 12/31/20 13:14 20:38 Temp 36.4 Pulse 84 Resp 19 B/P (MAP) 134/85 (101) Pulse Ox 83 O2 Delivery Nasal Cannula O2 Flow Rate 2.00 FiO2 28 Capillary Refill : Less Than 3 Seconds Height, Weight, BMI Height: '" Weight: lbs. oz. kg; 36.00 BMI Method: General Appearance: No Apparent Distress, Chronically ill, Obese Eyes: Right Eye Normal Inspection, Right Eye PERRL HEENT: PERRL/EOMI, Normal ENT Inspection, Pharynx Normal, Moist Mucous Membranes Neck: Full Range of Motion, Normal Inspection, Non Tender Respiratory: Chest Non Tender, Lungs Clear, No Accessory Muscle Use, No Respiratory Distress, Decreased Breath Sounds Cardiovascular: Regular Rate, Rhythm, No Edema, No Gallop, No JVD, No Murmur, Normal Peripheral Pulses Gastrointestinal: Normal Bowel Sounds, No Organomegaly, No Pulsatile Mass, Non Tender, Soft Back: Normal Inspection, No CVA Tenderness, No Vertebral Tenderness Extremity: Normal Capillary Refill, Normal Inspection, Normal Range of Motion, Non Tender, No Calf Tenderness, No Pedal Edema Neurologic/Psychiatric: Alert, Oriented x3, No Motor/Sensory Deficits, Normal Mood/Affect Skin: Normal Color, Warm/Dry Lymphatic: No Adenopathy Results Results/Procedures Labs Laboratory Tests 12/31/20 13:30 01/01/21 04:37 Patient resulted labs reviewed. Assessment/Plan Admission Diagnosis Assessment: COVID-19 pneumonia Bacterial pneumonia Acute hypoxic respiratory insufficiency Smoker Anxiety Mental illness Plan: Supportive care COVID-19 protocol Admission Status: Inpatient Order (span 2 midnights) Reason for Inpatient Admission: COVID-19 pneumonia MUNA ARZOLA DO Jan 01, 2021 10:57
[2021-01-01 11:15] LABS: BASOPHILS % (AUTO) 0 % (0-10); EOSINOPHILS % (AUTO) 0 % (0-10); HEMATOCRIT 48 % (35-52); HEMOGLOBIN 15.6 g/dL (11.5-16.0); LYMPHOCYTES % (AUTO) 33 % (12-44); MEAN CORPUSCULAR HEMOGLOBIN 29 pg (25-34); MEAN CORPUSCULAR HGB CONC 33 g/dL (32-36); MEAN CORPUSCULAR VOLUME 88 fL (80-99); MEAN PLATELET VOLUME 11.9 fL (9.0-12.2); MONOCYTES # (AUTO) 0.3 10^3/uL (0.0-1.0); MONOCYTES % (AUTO) 8 % (0-12); NEUTROPHILS # (AUTO) 1.7 10^3/uL (1.8-7.8); NEUTROPHILS % (AUTO) 58 % (42-75); PLATELET COUNT 88 10^3/uL (130-400)
[2021-01-01 11:30] LABS: ALBUMIN 3.3 GM/DL (3.2-4.5); BILIRUBIN,TOTAL 0.4 MG/DL (0.1-1.0); CALCIUM 7.9 MG/DL (8.5-10.1); CREATININE SERUM 0.63 MG/DL (0.60-1.30); POTASSIUM 4.1 MMOL/L (3.6-5.0); TOTAL PROTEIN 5.8 GM/DL (6.4-8.2)
[2021-01-01 12:11] LABS: BAND NEUTROPHILS 5 %; LYMPHOCYTES % (MANUAL) 26 %; MONOCYTES % (MANUAL) 9 %; NEUTROPHILS % (MANUAL) 60 %; RBC MORPH NORMAL
[2021-01-01] MEDS: RT--FLUTICASONE/SALMETEROL 113-14 (AIRDUO RespiCLICK) IH SCH ×2 (16:08→22:13)
[2021-01-01] MEDS ORDERED: AZITHROMYCIN INJECTION 250 MG in NS (IVPB) 250 ML IV SCH (17:00)
[2021-01-01] MEDS ORDERED: NS (IVPB) 250 ML ONE (18:06)
[2021-01-01] MEDS ORDERED: AZITHROMYCIN INJECTION 500 MG/5 ML VIAL ONE (18:06)
[2021-01-01] MEDS: ENOXAPARIN 40 MG/0.4 ML (LOVENOX) SYR SC SCH (20:35)
[2021-01-02] MEDS: RT-ALBUTEROL HFA 8.5 GM INHALER IH SCH ×4 (02:56→21:48)
[2021-01-02] MEDS: CEFEPIME INJECTION 1,000 MG in WATER (STERILE) FOR INJECTION 10 ML IV SCH ×4 (06:29→21:51)
[2021-01-02 07:00] LABS: BASOPHILS % (AUTO) 0 % (0-10); EOSINOPHILS % (AUTO) 0 % (0-10); MEAN CORPUSCULAR HGB CONC 33 g/dL (32-36)
[2021-01-02 07:03] LABS: HEMATOCRIT 46 % (35-52); LYMPHOCYTES # (AUTO) 0.9 10^3/uL (1.0-4.0); LYMPHOCYTES % (AUTO) 27 % (12-44); MEAN CORPUSCULAR HEMOGLOBIN 29 pg (25-34); MEAN CORPUSCULAR VOLUME 88 fL (80-99); MEAN PLATELET VOLUME 11.2 fL (9.0-12.2); MONOCYTES # (AUTO) 0.2 10^3/uL (0.0-1.0); MONOCYTES % (AUTO) 5 % (0-12); NEUTROPHILS # (AUTO) 2.2 10^3/uL (1.8-7.8); NEUTROPHILS % (AUTO) 67 % (42-75); PLATELET COUNT 91 10^3/uL (130-400); WHITE BLOOD COUNT 3.4 10^3/uL (4.3-11.0)
[2021-01-02 07:25] LABS: ALBUMIN 3.2 GM/DL (3.2-4.5); BILIRUBIN,TOTAL 0.5 MG/DL (0.1-1.0); CALCIUM 8.7 MG/DL (8.5-10.1); CREATININE SERUM 0.61 MG/DL (0.60-1.30); POTASSIUM 3.7 MMOL/L (3.6-5.0)
[2021-01-02] MEDS: IBUPROFEN TABLET 200 MG TAB PO PRN (08:37)
[2021-01-02] MEDS: NICOTINE 21 MG (NICODERM) PATCH TD SCH (08:37)
[2021-01-02] MEDS: PANTOPRAZOLE 40 MG (PROTONIX) TAB PO SCH (08:37)
[2021-01-02] MEDS: SERTRALINE 100 MG (ZOLOFT) TAB PO SCH (08:37)
[2021-01-02] MEDS: ZIPRASIDONE 20 MG (GEODON) CAP PO SCH (08:38)
[2021-01-02] MEDS: FAMOTIDINE 20 MG (PEPCID) TABLET PO SCH ×3 (08:38→21:51)
[2021-01-02] MEDS: PRAZOSIN 1 MG CAPSULE (MINIPRESS) NON-FORMULARY PO SCH ×2 (09:46→12:08)
[2021-01-02] MEDS: RT--FLUTICASONE/SALMETEROL 113-14 (AIRDUO RespiCLICK) IH SCH (13:44)
[2021-01-02] MEDS ORDERED: AZITHROMYCIN 250 MG/NS 250 ML IVPB IV SCH ×2 (17:30)
--- NOTE | 2021-01-02 19:14 | Progress Note ---
Subjective Subjective/Events-last exam Patient feeling much better this AM. States that she can breath alot better. She has been up going to the bathroom. Tolerating PO diet and ambulation Review of Systems Pulmonary: Dyspnea, Cough Cardiovascular: No: Chest Pain, Palpitations, Edema Gastrointestinal: No: Nausea, Vomiting Neurological: Weakness, Incoordination Focused Exam Lactate Level 12/31/20 13:45: Lactic Acid Level 0.98 Objective Exam Last Set of Vital Signs Vital Signs Date Time Temp Pulse Resp B/P (MAP) Pulse Ox O2 Delivery O2 Flow Rate FiO2 01/02/21 19:07 36.8 22 111/64 92 Nasal Cannula 3.00 01/02/21 16:07 72 12/31/20 20:38 28 Capillary Refill : Less Than 3 Seconds I&O Intake and Output 01/02/21 00:00 Intake Total 3582.5 ml Output Total 1000 ml Balance 2582.5 ml Intake Oral 1280 ml IV Total 2302.5 ml Output Urine Total 1000 ml # Voids 4 # Bowel Movements 1 General: Alert, Oriented X3, Cooperative, No Acute Distress Lungs: Clear to Auscultation, Normal Air Movement Heart: Regular Rate, No Murmurs Abdomen: Normal Bowel Sounds, Soft, No Tenderness, No Masses Extremities: No Edema, No Tenderness/Swelling Skin: No Rashes Neuro: Normal Speech, Sensation Intact, Cranial Nerves 3-12 NL Results/Procedures Lab Laboratory Tests 01/02/21 06:25: White Blood Count 3.4L, Red Blood Count 5.19H, Hemoglobin 15.0, Hematocrit 46, Mean Corpuscular Volume 88, Mean Corpuscular Hemoglobin 29, Mean Corpuscular Hemoglobin Concent 33, Red Cell Distribution Width 13.2, Platelet Count 91L, M william Platelet Volume 11.2, Immature Granulocyte % (Auto) 1, Neutrophils (%) (Auto) 67, Lymphocytes (%) (Auto) 27, Monocytes (%) (Auto) 5, Eosinophils (%) (Auto) 0, Basophils (%) (Auto) 0, Neutrophils # (Auto) 2.2, Lymphocytes # (Auto) 0.9L, Monocytes # (Auto) 0.2, Eosinophils # (Auto) 0.0, Basophils # (Auto) 0.0, Immature Granulocyte # (Auto) 0.0, Percent Immature Platelet Fraction 4.7, Sodium Level 143, Potassium Level 3.7, Chloride Level 111H, Carbon Dioxide Level 21, Anion Gap 11, Blood Urea Nitrogen 9, Creatinine 0.61, Estimat Glomerular Filtration Rate 102, BUN/Creatinine Ratio 15, Glucose Level 110H, Calcium Level 8.7, Corrected Calcium 9.3, Total Bilirubin 0.5, Aspartate Amino Transf (AST/S GOT) 20, Alanine Aminotransferase (ALT/SGPT) 12, Alkaline Phosphatase 42, Total Protein 6.0L, Albumin 3.2 Microbiology 01/01/21 Blood Culture - Preliminary, Resulted No growth 12/31/20 MRSA Screen - Final, Complete MRSA not isolated Assessment/Plan Assessment/Plan (1) Acute and chronic respiratory failure with hypoxia Status: Acute Assessment & Plan: 01/02: Will continue to monitor and titrate oxygen as tolerated, Continue steroids/antibiotics and MAT protocol (2) COVID-19 Status: Acute (3) COPD with exacerbation Status: Acute BJORN LOREDO MD Jan 02, 2021 19:14
[2021-01-02] MEDS: ENOXAPARIN 40 MG/0.4 ML (LOVENOX) SYR SC SCH (21:51)
[2021-01-03] MEDS: RT--FLUTICASONE/SALMETEROL 113-14 (AIRDUO RespiCLICK) IH SCH ×3 (02:28→20:51)
[2021-01-03] MEDS: RT-ALBUTEROL HFA 8.5 GM INHALER IH SCH ×4 (02:38→20:51)
[2021-01-03] MEDS: CEFEPIME INJECTION 1,000 MG in WATER (STERILE) FOR INJECTION 10 ML IV SCH ×4 (05:30→22:04)
[2021-01-03 07:16] LABS: EOSINOPHILS % (AUTO) 0 % (0-10)
[2021-01-03 07:18] LABS: BASOPHILS % (AUTO) 0 % (0-10); HEMATOCRIT 47 % (35-52); HEMOGLOBIN 15.6 g/dL (11.5-16.0); LYMPHOCYTES % (AUTO) 37 % (12-44); MEAN CORPUSCULAR HEMOGLOBIN 29 pg (25-34); MEAN CORPUSCULAR HGB CONC 33 g/dL (32-36); MEAN CORPUSCULAR VOLUME 89 fL (80-99); MEAN PLATELET VOLUME 11.6 fL (9.0-12.2); MONOCYTES # (AUTO) 0.2 10^3/uL (0.0-1.0); MONOCYTES % (AUTO) 7 % (0-12); NEUTROPHILS # (AUTO) 1.4 10^3/uL (1.8-7.8); NEUTROPHILS % (AUTO) 54 % (42-75); PLATELET COUNT 101 10^3/uL (130-400); WHITE BLOOD COUNT 2.6 10^3/uL (4.3-11.0)
[2021-01-03 07:22] LABS: POTASSIUM 3.9 MMOL/L (3.6-5.0)
[2021-01-03 07:23] LABS: CALCIUM 8.6 MG/DL (8.5-10.1)
[2021-01-03 07:28] LABS: CREATININE SERUM 0.57 MG/DL (0.60-1.30)
[2021-01-03] MEDS: NICOTINE 21 MG (NICODERM) PATCH TD SCH (08:38)
[2021-01-03] MEDS ORDERED: RT-ALBUINH INH (09:51)
[2021-01-03] MEDS: FAMOTIDINE 20 MG (PEPCID) TABLET PO SCH ×3 (10:58→22:47)
[2021-01-03] MEDS: dexAMETHasone 6 MG TAB (DECADRON) PO SCH (10:58)
[2021-01-03] MEDS: SERTRALINE 100 MG (ZOLOFT) TAB PO SCH (10:58)
[2021-01-03] MEDS: PANTOPRAZOLE 40 MG (PROTONIX) TAB PO SCH (10:59)
[2021-01-03] MEDS: IBUPROFEN TABLET 200 MG TAB PO PRN (10:59)
[2021-01-03] MEDS: ZIPRASIDONE 20 MG (GEODON) CAP PO SCH (11:01)
[2021-01-03] MEDS: PRAZOSIN 1 MG CAPSULE (MINIPRESS) NON-FORMULARY PO SCH ×2 (11:33→22:03)
--- NOTE | 2021-01-03 21:15 | Progress Note ---
Subjective Subjective/Events-last exam Patient states that she is feeling about the same as yesterday. Still having some shortness of breath. Tolerating PO diet and ambulating around room. Review of Systems Pulmonary: Dyspnea, Cough Cardiovascular: No: Chest Pain, Palpitations, Edema Gastrointestinal: No: Nausea, Vomiting, Abdominal Pain, Diarrhea, Constipation Genitourinary: No Dysuria, No Frequency Neurological: No: Weakness, Incoordination Objective Exam Last Set of Vital Signs Vital Signs Date Time Temp Pulse Resp B/P (MAP) Pulse Ox O2 Delivery O2 Flow Rate FiO2 01/03/21 20:51 96 Nasal Cannula 5.00 01/03/21 20:44 36.7 60 18 132/66 12/31/20 20:38 28 Capillary Refill : Less Than 3 Seconds I&O Intake and Output 01/03/21 00:00 Intake Total 2800 ml Balance 2800 ml Intake Oral 800 ml IV Total 2000 ml # Voids 6 # Bowel Movements 1 General: Alert, Oriented X3, Cooperative, Mild Distress Lungs: Clear to Auscultation, Other (mild increased work of breathing with minimal activity) Heart: Regular Rate, No Murmurs Abdomen: Normal Bowel Sounds, Soft, No Tenderness, No Masses Extremities: No Edema, No Tenderness/Swelling Skin: No Rashes, No Breakdown Neuro: Normal Speech Psych/Mental Status: Mental Status NL, Mood NL Results/Procedures Lab Laboratory Tests 01/03/21 06:09: White Blood Count 2.6L, Red Blood Count 5.32H, Hemoglobin 15.6, Hematocrit 47, Mean Corpuscular Volume 89, Mean Corpuscular Hemoglobin 29, Mean Corpuscular Hemoglobin Concent 33, Red Cell Distribution Width 13.2, Platelet Count 101L, Mean Platelet Volume 11.6, Immature Granulocyte % (Auto) 1, Neutrophils (%) (Auto) 54, Lymphocytes (%) (Auto) 37, Monocytes (%) (Auto) 7, Eosinophils (%) (Auto) 0, Basophils (%) (Auto) 0, Neutrophils # (Auto) 1.4L, Lymphocytes # (Auto) 1.0, Monocytes # (Auto) 0.2, Eosinophils # (Auto) 0.0, Basophils # (Auto) 0.0, Immature Granulocyte # (Auto) 0.0, Percent Immature Platelet Fraction 5.0, Sodium Level 143, Potassium Level 3.9, Chloride Level 108H, Carbon Dioxide Level 22, Anion Gap 13, Blood Urea Nitrogen 8, Creatinine 0.57L, Estimat Glomerular Filtration Rate 110, BUN/Creatinine Ratio 14, Glucose Level 105, Calcium Level 8.6 Microbiology 01/01/21 Blood Culture - Preliminary, Resulted No growth 12/31/20 MRSA Screen - Final, Complete MRSA not isolated Assessment/Plan Assessment/Plan (1) Acute and chronic respiratory failure with hypoxia Status: Acute Assessment & Plan: 01/02: Will continue to monitor and titrate oxygen as tolerated, Continue steroids/antibiotics and MAT protocol 01/03: Continue to titrate as tolerated (2) COVID-19 Status: Acute (3) COPD with exacerbation Status: Acute BJORN LOREDO MD Jan 03, 2021 21:15
[2021-01-03] MEDS: ENOXAPARIN 40 MG/0.4 ML (LOVENOX) SYR SC SCH (22:04)
[2021-01-03] MEDS: AZITHROMYCIN 250 MG TAB (ZITHROMAX) PO SCH (22:04)
[2021-01-04] MEDS: RT-ALBUTEROL HFA 8.5 GM INHALER IH SCH ×3 (02:46→20:56)
[2021-01-04] MEDS: CEFEPIME INJECTION 1,000 MG in WATER (STERILE) FOR INJECTION 10 ML IV SCH ×2 (06:27→11:42)
[2021-01-04 07:59] LABS: BASOPHILS % (AUTO) 0 % (0-10); EOSINOPHILS % (AUTO) 0 % (0-10); HEMATOCRIT 48 % (35-52); HEMOGLOBIN 15.7 g/dL (11.5-16.0); LYMPHOCYTES # (AUTO) 1.7 10^3/uL (1.0-4.0); LYMPHOCYTES % (AUTO) 34 % (12-44); MEAN CORPUSCULAR HEMOGLOBIN 29 pg (25-34); MEAN CORPUSCULAR HGB CONC 33 g/dL (32-36); MEAN CORPUSCULAR VOLUME 87 fL (80-99); MEAN PLATELET VOLUME 11.4 fL (9.0-12.2); MONOCYTES # (AUTO) 0.4 10^3/uL (0.0-1.0); MONOCYTES % (AUTO) 8 % (0-12); NEUTROPHILS # (AUTO) 2.8 10^3/uL (1.8-7.8); NEUTROPHILS % (AUTO) 56 % (42-75); PLATELET COUNT 149 10^3/uL (130-400)
[2021-01-04 08:28] LABS: ALBUMIN 3.4 GM/DL (3.2-4.5); BILIRUBIN,TOTAL 0.7 MG/DL (0.1-1.0); CALCIUM 9.1 MG/DL (8.5-10.1); CREATININE SERUM 0.63 MG/DL (0.60-1.30); POTASSIUM 3.3 MMOL/L (3.6-5.0); TOTAL PROTEIN 6.6 GM/DL (6.4-8.2)
[2021-01-04] MEDS ORDERED: KCL 20 MEQ TAB (K-DUR) PO ONE (09:00)
[2021-01-04] MEDS: FAMOTIDINE 20 MG (PEPCID) TABLET PO SCH ×2 (09:22→20:32)
[2021-01-04] MEDS: PANTOPRAZOLE 40 MG (PROTONIX) TAB PO SCH (09:23)
[2021-01-04] MEDS: dexAMETHasone 6 MG TAB (DECADRON) PO SCH (09:23)
[2021-01-04] MEDS: SERTRALINE 100 MG (ZOLOFT) TAB PO SCH (09:23)
[2021-01-04] MEDS: ZIPRASIDONE 20 MG (GEODON) CAP PO SCH (09:23)
[2021-01-04] MEDS: NICOTINE 21 MG (NICODERM) PATCH TD SCH ×2 (09:23→09:26)
[2021-01-04] MEDS: RT--FLUTICASONE/SALMETEROL 113-14 (AIRDUO RespiCLICK) IH SCH ×2 (11:19→20:56)
[2021-01-04] MEDS: CEFEPIME 1,000 MG/NS 50 ML IVPB IV SCH ×2 (16:46)
[2021-01-04] MEDS: AZITHROMYCIN 250 MG TAB (ZITHROMAX) PO SCH (20:28)
[2021-01-04] MEDS: ENOXAPARIN 40 MG/0.4 ML (LOVENOX) SYR SC SCH (20:29)
[2021-01-04] MEDS: PRAZOSIN 1 MG CAPSULE (MINIPRESS) NON-FORMULARY PO SCH (20:32)
--- NOTE | 2021-01-04 20:54 | Progress Note ---
Subjective Subjective/Events-last exam Patient states that she is feeling much better. Ambulating around the room. Tolerating PO diet. Review of Systems General: Fatigue, Malaise Pulmonary: Dyspnea, Cough Cardiovascular: No: Chest Pain, Palpitations, Edema Gastrointestinal: No: Nausea, Vomiting, Abdominal Pain, Diarrhea, Constipation Genitourinary: No Dysuria, No Frequency Musculoskeletal: neck pain Neurological: Weakness, Incoordination Objective Exam Last Set of Vital Signs Vital Signs Date Time Temp Pulse Resp B/P (MAP) Pulse Ox O2 Delivery O2 Flow Rate FiO2 01/04/21 20:45 High Flow N/C 5.00 01/04/21 19:15 36.1 58 20 124/70 92 12/31/20 20:38 28 Capillary Refill : Less Than 3 Seconds I&O Intake and Output 01/04/21 00:00 Intake Total 7080 ml Balance 7080 ml Intake Oral 1070 ml IV Total 6010 ml # Voids 9 # Bowel Movements 1 General: Alert, Oriented X3, No Acute Distress Lungs: Clear to Auscultation, Normal Air Movement Heart: Regular Rate, No Murmurs Abdomen: Normal Bowel Sounds, Soft, No Tenderness, No Masses Extremities: No Edema, No Tenderness/Swelling Skin: No Rashes Neuro: Normal Speech, Strength at 5/5 X4 Ext, Sensation Intact, Cranial Nerves 3-12 NL Psych/Mental Status: Mental Status NL, Mood NL Results/Procedures Lab Laboratory Tests 01/04/21 07:45: White Blood Count 5.0, Red Blood Count 5.46H, Hemoglobin 15.7, Hematocrit 48, Mean Corpuscular Volume 87, Mean Corpuscular Hemoglobin 29, Mean Corpuscular Hemoglobin Concent 33, Red Cell Distribution Width 13.0, Platelet Count 149, Mean Platelet Volume 11.4, Immature Granulocyte % (Auto) 1, Neutrophils (%) (Au to) 56, Lymphocytes (%) (Auto) 34, Monocytes (%) (Auto) 8, Eosinophils (%) (Auto) 0, Basophils (%) (Auto) 0, Neutrophils # (Auto) 2.8, Lymphocytes # (Auto) 1.7, Monocytes # (Auto) 0.4, Eosinophils # (Auto) 0.0, Basophils # (Auto) 0.0, Immature Granulocyte # (Auto) 0.1, Sodium Level 143, Potassium Level 3.3L, Chloride Level 107, Carbon Dioxide Level 25, Anion Gap 11, Blood Urea Nitrogen 11, Creatinine 0.63, Estimat Glomerular Filtration Rate 98, BUN/Creatinine Ratio 17, Glucose Level 94, Calcium Level 9.1, Corrected Calcium 9.6, Total Bilirubin 0.7, Aspartate Amino Transf (AST/SGOT) 18, Alanine Aminotransferase (ALT/SGPT) 15, Alkaline Phosphatase 47, Total Protein 6.6, Albumin 3.4 Microbiology 01/01/21 Blood Culture - Preliminary, Resulted No growth 12/31/20 MRSA Screen - Final, Complete MRSA not isolated Assessment/Plan Assessment/Plan (1) Acute and chronic respiratory failure with hypoxia Status: Acute Assessment & Plan: 01/02: Will continue to monitor and titrate oxygen as tolerated, Continue steroids/antibiotics and MAT protocol 01/03: Continue to titrate as tolerated 01/04: Home oxygen study in the AM, plan to d/c in the next 2 days if patient continues to improve (2) COVID-19 Status: Acute (3) COPD with exacerbation Status: Acute BJORN LOREDO MD Jan 04, 2021 20:54
[2021-01-05] MEDS: CEFEPIME 1,000 MG/NS 50 ML IVPB IV SCH ×8 (00:32→18:05)
[2021-01-05] MEDS: RT-ALBUTEROL HFA 8.5 GM INHALER IH SCH ×4 (02:19→20:53)
[2021-01-05 06:03] LABS: BASOPHILS % (AUTO) 0 % (0-10); EOSINOPHILS % (AUTO) 0 % (0-10); HEMATOCRIT 46 % (35-52); HEMOGLOBIN 15.2 g/dL (11.5-16.0); LYMPHOCYTES # (AUTO) 1.5 10^3/uL (1.0-4.0); LYMPHOCYTES % (AUTO) 33 % (12-44); MEAN CORPUSCULAR HEMOGLOBIN 29 pg (25-34); MEAN CORPUSCULAR HGB CONC 33 g/dL (32-36); MEAN CORPUSCULAR VOLUME 87 fL (80-99); MEAN PLATELET VOLUME 11.2 fL (9.0-12.2); MONOCYTES # (AUTO) 0.4 10^3/uL (0.0-1.0); MONOCYTES % (AUTO) 9 % (0-12); NEUTROPHILS # (AUTO) 2.5 10^3/uL (1.8-7.8); NEUTROPHILS % (AUTO) 56 % (42-75); PLATELET COUNT 160 10^3/uL (130-400); WHITE BLOOD COUNT 4.4 10^3/uL (4.3-11.0)
[2021-01-05 06:09] LABS: SMEAR SCAN COMMENT YES
[2021-01-05 06:13] LABS: ALBUMIN 3.3 GM/DL (3.2-4.5); POTASSIUM 3.2 MMOL/L (3.6-5.0)
[2021-01-05 06:14] LABS: CALCIUM 8.8 MG/DL (8.5-10.1)
[2021-01-05 06:15] LABS: TOTAL PROTEIN 6.2 GM/DL (6.4-8.2)
[2021-01-05 06:17] LABS: BILIRUBIN,TOTAL 0.7 MG/DL (0.1-1.0)
[2021-01-05 06:19] LABS: CREATININE SERUM 0.62 MG/DL (0.60-1.30)
[2021-01-05] MEDS: RT--FLUTICASONE/SALMETEROL 113-14 (AIRDUO RespiCLICK) IH SCH ×2 (08:05→20:52)
[2021-01-05] MEDS: SERTRALINE 100 MG (ZOLOFT) TAB PO SCH (08:29)
[2021-01-05] MEDS: NICOTINE 21 MG (NICODERM) PATCH TD SCH (08:30)
[2021-01-05] MEDS: ZIPRASIDONE 20 MG (GEODON) CAP PO SCH (08:30)
[2021-01-05] MEDS: PANTOPRAZOLE 40 MG (PROTONIX) TAB PO SCH (08:30)
[2021-01-05] MEDS: dexAMETHasone 6 MG TAB (DECADRON) PO SCH (08:30)
[2021-01-05] MEDS: FAMOTIDINE 20 MG (PEPCID) TABLET PO SCH ×3 (08:30→21:24)
--- NOTE | 2021-01-05 19:07 | Progress Note ---
Subjective Subjective/Events-last exam Patient states that she is feeling better breathing but unable to titrate oxygen. Tolerating PO diet and ambulation. Review of Systems Pulmonary: Dyspnea, Cough Cardiovascular: No: Chest Pain, Palpitations, Edema Gastrointestinal: No: Nausea, Vomiting, Abdominal Pain, Diarrhea, Constipation Genitourinary: No Dysuria, No Frequency Neurological: Weakness, Incoordination Objective Exam Last Set of Vital Signs Vital Signs Date Time Temp Pulse Resp B/P (MAP) Pulse Ox O2 Delivery O2 Flow Rate FiO2 01/05/21 16:49 36.0 62 16 145/70 92 High Flow N/C 5.00 12/31/20 20:38 28 Capillary Refill : Less Than 3 Seconds I&O Intake and Output 01/05/21 00:00 Intake Total 13682 ml Balance 16317 ml Intake Oral 1880 ml IV Total 13606 ml # Voids 11 # Bowel Movements 2 General: Alert, Oriented X3, Cooperative, No Acute Distress HEENT: Mucous Memb Moist/[place] Lungs: Clear to Auscultation, Normal Air Movement Heart: Regular Rate, No Murmurs Abdomen: Normal Bowel Sounds, Soft, No Tenderness, No Masses Extremities: No Edema, No Tenderness/Swelling Skin: No Rashes Neuro: Normal Speech, Strength at 5/5 X4 Ext, Sensation Intact, Cranial Nerves 3-12 NL Results/Procedures Lab Laboratory Tests 01/05/21 05:50: White Blood Count 4.4, Red Blood Count 5.25H, Hemoglobin 15.2, Hematocrit 46, Mean Corpuscular Volume 87, Mean Corpuscular Hemoglobin 29, Mean Corpuscular H emoglobin Concent 33, Red Cell Distribution Width 12.7, Platelet Count 160, Mean Platelet Volume 11.2, Immature Granulocyte % (Auto) 2, Neutrophils (%) (Auto) 56, Lymphocytes (%) (Auto) 33, Monocytes (%) (Auto) 9, Eosinophils (%) (Auto) 0, Basophils (%) (Auto) 0, Neutrophils # (Auto) 2.5, Lymphocytes # (Auto) 1.5, Monocytes # (Auto) 0.4, Eosinophils # (Auto) 0.0, Basophils # (Auto) 0.0, Immature Granulocyte # (Auto) 0.1, Sodium Level 142, Potassium Level 3.2L, Chloride Level 104, Carbon Dioxide Level 25, Anion Gap 13, Blood Urea Nitrogen 12, Creatinine 0.62, Estimat Glomerular Filtration Rate 100, BUN/Creatinine Ratio 19, Glucose Level 95, Calcium Level 8.8, Corrected Calcium 9.4, Total Bilirubin 0.7, Aspartate Amino Transf (AST/SGOT) 19, Alanine Aminotransferase (ALT/SGPT) 14, Alkaline Phosphatase 45, Total Protein 6.2L, Albumin 3.3, Smear S can YES Microbiology 01/01/21 Blood Culture - Preliminary, Resulted No growth 12/31/20 MRSA Screen - Final, Complete MRSA not isolated Assessment/Plan Assessment/Plan (1) Acute and chronic respiratory failure with hypoxia Status: Acute Assessment & Plan: 01/02: Will continue to monitor and titrate oxygen as tolerated, Continue steroids/antibiotics and MAT protocol 01/03: Continue to titrate as tolerated 01/04: Home oxygen study in the AM, plan to d/c in the next 2 days if patient continues to improve 01/05: Unable to titrate oxygen since yesterday (2) COVID-19 Status: Acute (3) COPD with exacerbation Status: Acute BJORN LOREDO MD Jan 05, 2021 19:07
[2021-01-05] MEDS: ENOXAPARIN 40 MG/0.4 ML (LOVENOX) SYR SC SCH ×2 (21:18→21:25)
[2021-01-05] MEDS: PRAZOSIN 1 MG CAPSULE (MINIPRESS) NON-FORMULARY PO SCH (21:18)
[2021-01-06] MEDS: RT-ALBUTEROL HFA 8.5 GM INHALER IH SCH ×4 (03:23→22:33)
[2021-01-06] MEDS ORDERED: KCL 20 MEQ TAB (K-DUR) PO NR (07:00)
[2021-01-06] MEDS: NICOTINE 21 MG (NICODERM) PATCH TD SCH ×2 (09:00→09:18)
[2021-01-06] MEDS: ZIPRASIDONE 20 MG (GEODON) CAP PO SCH (09:18)
[2021-01-06] MEDS: SERTRALINE 100 MG (ZOLOFT) TAB PO SCH (09:18)
[2021-01-06] MEDS: dexAMETHasone 6 MG TAB (DECADRON) PO SCH (09:18)
[2021-01-06] MEDS: PANTOPRAZOLE 40 MG (PROTONIX) TAB PO SCH (09:18)
[2021-01-06] MEDS: FAMOTIDINE 20 MG (PEPCID) TABLET PO SCH ×2 (09:18→21:32)
[2021-01-06] MEDS: RT--FLUTICASONE/SALMETEROL 113-14 (AIRDUO RespiCLICK) IH SCH ×2 (10:18→22:33)
--- NOTE | 2021-01-06 16:06 | Progress Note ---
Subjective Subjective/Events-last exam Patient states that she is wanting to leave today but she is unable to tolerate titration of oxygen. Review of Systems General: No Chills; Fatigue Pulmonary: Dyspnea, Cough Cardiovascular: No: Chest Pain, Palpitations, Edema Gastrointestinal: No: Nausea, Vomiting, Abdominal Pain, Diarrhea, Constipation Neurological: Weakness, Incoordination Objective Exam Last Set of Vital Signs Vital Signs Date Time Temp Pulse Resp B/P (MAP) Pulse Ox O2 Delivery O2 Flow Rate FiO2 01/06/21 14:06 91 Nasal Cannula 5.00 01/06/21 12:52 71 01/06/21 11:35 36.8 20 125/64 12/31/20 20:38 28 Capillary Refill : Less Than 3 Seconds I&O Intake and Output 01/06/21 00:00 Intake Total 21830 ml Balance 70267 ml Intake Oral 970 ml IV Total 01214 ml # Voids 6 # Bowel Movements 1 General: Alert, Oriented X3, Cooperative, No Acute Distress HEENT: Mucous Memb Moist/[place] Lungs: Clear to Auscultation, Normal Air Movement Heart: Regular Rate, No Murmurs Abdomen: Normal Bowel Sounds, Soft, No Tenderness Extremities: No Edema, No Tenderness/Swelling Skin: No Rashes Neuro: Normal Speech, Sensation Intact Results/Procedures Lab Microbiology 01/01/21 Blood Culture - Final, Complete No growth 12/31/20 MRSA Screen - Final, Complete MRSA not isolated Assessment/Plan Assessment/Plan (1) Acute and chronic respiratory failure with hypoxia Status: Acute Assessment & Plan: 01/02: Will continue to monitor and titrate oxygen as tolerated, Continue steroids/antibiotics and MAT protocol 01/03: Continue to titrate as tolerated 01/04: Home oxygen study in the AM, plan to d/c in the next 2 days if patient continues to improve 01/05: Unable to titrate oxygen since yesterday 01/06: Encouraged patient to prone and do IS, continue to titrate as tolerated (2) COVID-19 Status: Acute (3) COPD with exacerbation Status: Acute BJORN LOREDO MD Jan 06, 2021 16:06
[2021-01-06] MEDS: ENOXAPARIN 40 MG/0.4 ML (LOVENOX) SYR SC SCH (21:33)
[2021-01-06] MEDS: PRAZOSIN 1 MG CAPSULE (MINIPRESS) NON-FORMULARY PO SCH (21:43)
[2021-01-07] MEDS: RT-ALBUTEROL HFA 8.5 GM INHALER IH SCH ×2 (03:53→07:13)
[2021-01-07] MEDS: RT--FLUTICASONE/SALMETEROL 113-14 (AIRDUO RespiCLICK) IH SCH (07:13)
[2021-01-07] MEDS: NICOTINE 21 MG (NICODERM) PATCH TD SCH (07:40)
[2021-01-07] MEDS: dexAMETHasone 6 MG TAB (DECADRON) PO SCH (09:11)
[2021-01-07] MEDS: PANTOPRAZOLE 40 MG (PROTONIX) TAB PO SCH (09:12)
[2021-01-07] MEDS: ZIPRASIDONE 20 MG (GEODON) CAP PO SCH (09:12)
[2021-01-07] MEDS: FAMOTIDINE 20 MG (PEPCID) TABLET PO SCH (09:12)
[2021-01-07] MEDS: SERTRALINE 100 MG (ZOLOFT) TAB PO SCH (09:12)
[2021-01-07 13:25] VITALS: BP 131/62
== END 2021-01-07 13:25 | disposition home or self-care (01) | DRG 177 ==
LOC: EDUNIT# 13:13 → ER FS 13:14 → ICU 18:51 → 4TH 01-01 13:47 → EDPENDDISDT 01-07 12:00 → EDPENDDISTM 01-07 12:00
PROVIDERS: ADMIT Internal Medicine; ATTEND Family Medicine
DX: U07.1 COVID-19 (principal); J12.82 Pneumonia due to coronavirus disease 2019; J15.9 Unspecified bacterial pneumonia; J96.01 Acute respiratory failure with hypoxia; J44.1 Chronic obstructive pulmonary disease with (acute) exacerbation; J44.0 Chronic obstructive pulmonary disease with (acute) lower respiratory infection; J01.30 Acute sphenoidal sinusitis, unspecified; E87.6 Hypokalemia; F41.9 Anxiety disorder, unspecified; H54.7 Unspecified visual loss; R19.7 Diarrhea, unspecified; E66.9 Obesity, unspecified; F17.210 Nicotine dependence, cigarettes, uncomplicated; Z68.37 Body mass index [BMI] 37.0-37.9, adult; Z88.2 Allergy status to sulfonamides; Z79.899 Other long term (current) drug therapy
CPT/HCPCS: 36415; 70450; 71275; 74177; 80048; 80053; 80306; 80320; 81000; 82947; 83605; 83615; 83735; 84484; 85007; 85025; 85027; 85379; 85610; 85730; 86141; 87040; 87081; 87186; 87636; 87804; 93005; 93041; 94640; 94664; 94760; 94761; 96361; 96374; 96375

== ENCOUNTER 2021-04-24 18:24 | Emergency (ER) | payer MEDICAID ==
[~2021-04-24] VITALS: Ht 147.3 cm; Wt 77.0 kg
[~2021-04-24 18:24] MED LIST changes: +BUDE10.22 IH; +BUSP10TA95 PO; +NICO-685 TD; +PRAZ2CAP2 PO; +SERT-414 PO; +ZIPR60CA18 PO
[2021-04-24 18:32] VITALS: BP 143/91
--- NOTE | 2021-04-24 19:26 | ED Dyspnea ---
General Chief Complaint: General Problems/Pain Stated Complaint: SHAKING,SOA,FEVER,FATIGUE Nursing Triage Note: Patient states that she is on home oxygen PRN and HS. Patient states that she checks her SPO2 at home and her SPO2 is supposed to be 94% or above. Patient states that since yesterday, her SPO2 has been 93%. Patient denies sickness or fever. Patient wanted to get checked out. Source of Information: RN Notes Reviewed Exam Limitations: Other (pt left prior to my exam) History of Present Illness Date Seen by Provider: Apr 24, 2021 Time Seen by Provider: 19:24 Initial Comments 55 yo female presented with concern for her oxygen saturation at 93% at home when she is supposed to be 94%. She denies any sickness or illness and no fever or chills to the nurse. She requested the lights be dimmed in her room so she could rest when she was brought back to ED room 5. Allergies and Home Medications Allergies Coded Allergies: Sulfa (Sulfonamide Antibiotics) (Verified Allergy, Unknown, 08/22/20) divalproex sodium (Verified Allergy, Unknown, 11/16/20) trazodone (Verified Allergy, Unknown, 11/16/20) Patient Home Medication List Home Medication List Reviewed: Yes Albuterol Sulfate (Ventolin Hfa) 1 Puff Puff, 2 PUFF INH Q4H PRN for SHORTNESS OF BREATH, (Reported) Entered as Reported by: ROSALIO TYSON on 01/03/21 0951 Budesonide/Formoterol Fumarate (Symbicort 80-4.5 Mcg Inhaler) 10.2 Gm Hfa.aer.ad, 2 EA IH BID, (Reported) Entered as Reported by: LAWRENCE PLUNKETT on 12/31/202045 Buspirone HCl (Buspirone HCl) 10 Mg Tablet, 10 MG PO BID PRN for ANXIETY, (Reported) Entered as Reported by: LAWRENCE PLUNKETT on 12/31/202045 Nicotine (Nicotine Patch) 1 Each Patch.td24, 1 EA TD DAILY, (Reported) Entered as Reported by: LAWRENCE PLUNKETT on 12/31/202045 Prazosin HCl (Prazosin HCl) 2 Mg Capsule, 2 MG PO HS, (Reported) Entered as Reported by: LAWRENCE PLUNKETT on 12/31/202045 Sertraline HCl (Sertraline HCl) 100 Mg Tablet, 100 MG PO DAILY, (Reported) Entered as Reported by: LAWRENCE PLUNKETT on 12/31/202045 Ziprasidone HCl (Ziprasidone HCl) 60 Mg Capsule, 60 MG PO DAILY, (Reported) Entered as Reported by: LAWRENCE PLUNKETT on 12/31/202045 Review of Systems Review of Systems Constitutional: No chills, No fever Unable to obtain ROS as patient left against medical advice prior to seeing physician. Past Bmnizjo-Rvtscw-Viifqu Hx Patient Social History Tobacco Use?: Yes Smoking Status: Current Everyday Smoker Substance use?: Yes Substance type: Marijuana Alcohol Use?: No Pt feels they are or have been: No Seasonal Allergies Seasonal Allergies: No Past Medical History Surgery/Hospitalization HX: COPD Surgeries: Yes Gallbladder, Hysterectomy Respiratory: Yes Asthma, COPD Cardiac: No Neurological: No Genitourinary: No Gastrointestinal: No Musculoskeletal: No Endocrine: No HEENT: No Cancer: No Psychosocial: Yes Anxiety Integumentary: No Physical Exam Vital Signs Vital Signs - First Documented 04/24/21 18:32 Temp 37.1 Pulse 58 Resp 20 B/P (MAP) 143/91 (108) Pulse Ox 94 O2 Delivery Room Air Capillary Refill : Less Than 3 Seconds Height, Weight, BMI Height: '" Weight: lbs. oz. kg; 35.00 BMI Method: General Appearance: No Apparent Distress, Other (Patient left against medical advice prior to exam by physician) Progress/Results/Core Measures Results/Orders Vital Signs/I&O 04/24/21 18:32 Temp 37.1 Pulse 58 Resp 20 B/P (MAP) 143/91 (108) Pulse Ox 94 O2 Delivery Room Air Blood Pressure Mean: 108 Progress Progress Note : Progress Note Patient had checked into the emergency department when several other patients were checked and at the same time as well as I was working with a procedure on the patient. She had been resting in the room in no distress with an oxygen saturation of 94 to 95%. Before I was able to go in and examine her she told the nurse she wanted to leave because it was taking too long to be seen. I was in another room with a different patient and despite the nurses best effort to persuade her to wait and be seen she chose to leave against medical advice prior to being seen by physician. Departure Impression Primary Impression: Left against medical advice Additional Impression: Shortness of breath Disposition: 07 AGAINST MEDICAL ADVICE Condition: Against Medical Advice Departure-Patient Inst. Referrals: DAVON CASTELAN MD (PCP/Family) Primary Care Physician SUMAN LOCKWOOD MD Apr 24, 2021 19:26
== END 2021-04-24 19:23 | disposition left against medical advice (07) ==
LOC: EDUNIT# 18:24 → ER FS 18:26
DX: R06.02 Shortness of breath (principal); F17.290 Nicotine dependence, other tobacco product, uncomplicated
CPT/HCPCS: 99281

== ENCOUNTER 2021-07-17 15:02 | Emergency (ER) | payer MEDICAID ==
[~2021-07-17] VITALS: Ht 145 cm; Wt 77.0 kg
[2021-07-17] MEDS ORDERED: ONDANSETRON 4 MG/2 ML (SDV) Z0FRAN IVP ONE (15:30)
[2021-07-17] MEDS ORDERED: KETOROLAC 30 MG/ML VIAL IVP ONE (15:30)
--- NOTE | 2021-07-17 15:30 | ED Back Pain ---
General Chief Complaint: Back Problems Stated Complaint: RT FLANK PAIN Source of Information: Patient Exam Limitations: No Limitations History of Present Illness Date Seen by Provider: July 17, 2021 Time Seen by Provider: 15:02 Initial Comments 55-year-old female coming in due to right greater than left flank pain.'s been going on for few days. It is constant, sharp, radiates slightly around the lateral side of her abdomen. Denies any urinary symptoms including any dysuria or hematuria. Says she is never had pain like this before. Otherwise denies any chest pain, shortness of breath, fever, vomiting, says she has constant diarrhea, no weakness, numbness, rash, or any other concerns Allergies and Home Medications Allergies Coded Allergies: Sulfa (Sulfonamide Antibiotics) (Verified Allergy, Unknown, 08/22/20) divalproex sodium (Verified Allergy, Unknown, 11/16/20) trazodone (Verified Allergy, Unknown, 11/16/20) Patient Home Medication List Home Medication List Reviewed: Yes Albuterol Sulfate (Ventolin Hfa) 1 Puff Puff, 2 PUFF INH Q4H PRN for SHORTNESS OF BREATH, (Reported) Entered as Reported by: ROSALIO TYSON on 01/03/21 0951 Budesonide/Formoterol Fumarate (Symbicort 80-4.5 Mcg Inhaler) 10.2 Gm Hfa.aer.ad, 2 EA IH BID, (Reported) Entered as Reported by: LAWRENCE PLUNKETT on 12/31/202045 Buspirone HCl (Buspirone HCl) 10 Mg Tablet, 10 MG PO BID PRN for ANXIETY, (Reported) Entered as Reported by: LAWRENCE PLUNKETT on 12/31/202045 Nicotine (Nicotine Patch) 1 Each Patch.td24, 1 EA TD DAILY, (Reported) Entered as Reported by: LAWRENCE PLUNKETT on 12/31/202045 Prazosin HCl (Prazosin HCl) 2 Mg Capsule, 2 MG PO HS, (Reported) Entered as Reported by: LAWRENCE PLUNKETT on 12/31/202045 Sertraline HCl (Sertraline HCl) 100 Mg Tablet, 100 MG PO DAILY, (Reported) Entered as Reported by: LAWRENCE PLUNKETT on 12/31/202045 Ziprasidone HCl (Ziprasidone HCl) 60 Mg Capsule, 60 MG PO DAILY, (Reported) Entered as Reported by: LAWRENCE PLUNKETT on 12/31/202045 Review of Systems Constitutional: No chills, No fever EENTM: No blurred vision Respiratory: No cough Cardiovascular: No chest pain Gastrointestinal: No abdominal pain, No vomiting Genitourinary: other (flank pain) Musculoskeletal: back pain Skin: no symptoms reported Psychiatric/Neurological: No Symptoms Reported All Other Systems Reviewed Negative Unless Noted: Yes Past Ortkspb-Idzzfv-Qhpcvv Hx Patient Social History Tobacco Use?: Yes Seasonal Allergies Seasonal Allergies: No Past Medical History Surgery/Hospitalization HX: COPD Surgeries: Yes Gallbladder, Hysterectomy Respiratory: Yes Asthma, COPD Cardiac: No Neurological: No Genitourinary: No Gastrointestinal: No Musculoskeletal: No Endocrine: No HEENT: No Cancer: No Psychosocial: Yes Anxiety Integumentary: No Physical Exam Vital Signs Capillary Refill : Height, Weight, BMI Height: '" Weight: lbs. oz. kg; 35.00 BMI Method: General Appearance: No Apparent Distress, WD/WN HEENT: PERRL/EOMI, Normal ENT Inspection, Pharynx Normal Neck: Full Range of Motion, Normal Inspection, Non Tender, Supple Cardiovascular: Regular Rate, Rhythm, No Edema, Normal Peripheral Pulses Respiratory: Chest Non Tender, Lungs Clear, Normal Breath Sounds, No Accessory Muscle Use, No Respiratory Distress Gastrointestinal: Normal Bowel Sounds, Non Tender, Soft; No Distended, No Gua rding Back: Normal Inspection, No Vertebral Tenderness, CVA Tenderness (R) Extremity: Normal Capillary Refill, Normal Inspection, Normal Range of Motion, Non Tender, No Calf Tenderness, No Pedal Edema, Other (Negative straight leg test, normal lower extremity strength and reflexes) Neurologic/Psychiatric: Alert, Oriented x3, No Motor/Sensory Deficits, Normal Mood/Affect Skin: Normal Color, Warm/Dry Lymphatic: No Adenopathy Progress/Results/Core Measures Results/Orders Lab Results Laboratory Tests Test 07/17/21 15:10 07/17/21 16:00 Range/Units Urine Color DARK YELLOW Urine Clarity CLEAR Urine pH 5.5 5-9 Urine Specific [place] >=1.030 1.016-1.022 Urine Protein NEGATIVE NEGATIVE Urine Glucose (UA) NEGATIVE NEGATIVE Urine Ketones NEGATIVE NEGATIVE Urine Nitrite NEGATIVE NEGATIVE Urine Bilirubin NEGATIVE NEGATIVE Urine Urobilinogen 0.2 < = 1.0 MG/DL Urine Leukocyte Esterase NEGATIVE NEGATIVE Urine RBC (Auto) NEGATIVE NEGATIVE Urine RBC NONE /HPF Urine WBC 0-2 /HPF Urine Crystals NONE /LPF Urine Bacteria NEGATIVE /HPF Urine Casts NONE /LPF Urine Mucus SMALL H /LPF Urine Culture Indicated NO White Blood Count 8.5 4.3-11.0 10^3/uL Red Blood Count 5.68 H 3.80-5.11 10^6/uL Hemoglobin 16.6 H 11.5-16.0 g/dL Hematocrit 48 35-52 % Mean Corpuscular Volume 84 80-99 fL Mean Corpuscular Hemoglobin 29 25-34 pg Mean Corpuscular Hemoglobin Concent 35 32-36 g/dL Red Cell Distribution Width 13.4 10.0-14.5 % Platelet Count 196 130-400 10^3/uL Mean Platelet Volume 10.3 9.0-12.2 fL Immature Granulocyte % (Auto) 0 % Neutrophils (%) (Auto) 54 42-75 % Lymphocytes (%) (Auto) 38 12-44 % Monocytes (%) (Auto) 7 0-12 % Eosinophils (%) (Auto) 1 0-10 % Basophils (%) (Auto) 1 0-10 % Neutrophils # (Auto) 4.6 1.8-7.8 10^3/uL Lymphocytes # (Auto) 3.2 1.0-4.0 10^3/uL Monocytes # (Auto) 0.6 0.0-1.0 10^3/uL Eosinophils # (Auto) 0.1 0.0-0.3 10^3/uL Basophils # (Auto) 0.0 0.0-0.1 10^3/uL Immature Granulocyte # (Auto) 0.0 0.0-0.1 10^3/uL Sodium Level 136 135-145 MMOL/L Potassium Level 4.3 3.6-5.0 MMOL/L Chloride Level 105 98-107 MMOL/L Carbon Dioxide Level 20 L 21-32 MMOL/L Anion Gap 11 5-14 MMOL/L Blood Urea Nitrogen 9 7-18 MG/DL Creatinine 0.73 0.60-1.30 MG/DL Estimat Glomerular Filtration Rate 97 BUN/Creatinine Ratio 12 Glucose Level 113 H 70-105 MG/DL Calcium Level 9.1 8.5-10.1 MG/DL Corrected Calcium 9.1 8.5-10.1 MG/DL Total Bilirubin 0.3 0.1-1.0 MG/DL Aspartate Amino Transf (AST/SGOT) 29 5-34 U/L Alanine Aminotransferase (ALT/SGPT) 16 0-55 U/L Alkaline Phosphatase 76 40-136 U/L Total Protein 6.4 6.4-8.2 GM/DL Albumin 4.0 3.2-4.5 GM/DL Lipase 108 H 8-78 U/L My Orders Orders - JOHN NICHOLAS MD Cbc With Automated Diff (07/17/21 15:26) Comprehensive Metabolic Panel (07/17/21 15:26) Lipase (07/17/21 15:26) Ua Culture If Indicated (07/17/21 15:26) Ct Abdomen/Pelvis Wo (07/17/21 15:26) Ketorolac Injection (Toradol Injection) (07/17/21 15:30) Ondansetron Injection (Zofran Injectio (07/17/21 15:30) Urine Bedside (07/17/21 15:26) Medications Given in ED Current Medications Medications Dose Ordered Sig/Karla Route Start Time Stop Time Status Last Admin Dose Admin Ketorolac Tromethamine 15 mg ONCE ONCE IVP 07/17/21 15:30 07/17/21 15:31 DC 07/17/21 15:55 15 MG Ondansetron HCl 4 mg ONCE ONCE IVP 07/17/21 15:30 07/17/21 15:31 DC 07/17/21 15:55 4 MG Progress Progress Note : Progress Note 55-year-old female coming in due to flank pain. ABCs were intact and vitals were stable on presentation. Physical exam reassuring other than some right flank tenderness. An IV was placed and basic labs obtained and are reassuring including normal kidney function and normal urinalysis. CT abdomen pelvis without contrast ordered with no acute abnormalities including no signs of ureterolithiasis. Patient was given Toradol and is feeling slightly better. I believe she is stable for discharge with outpatient follow-up. She was sent home with strict return precautions Diagnostic Imaging Diagonstic Imaging: CT (abd/pelv) Comments NAME: LUCIEN RICHARDSON [facility] REC#: [id number] PT STATUS: REG ER : 1965 PHYSICIAN: JOHN NICHOLAS MD ADMIT DATE: 07/17/21/ER FS Draft Date of Exam:07/17/21 CT ABDOMEN/PELVIS WO PROCEDURE: CT abdomen and pelvis without contrast. TECHNIQUE: Multiple contiguous axial images were obtained through the abdomen and pelvis without the use of intravenous contrast. Auto Exposure Controls were utilized during the CT exam to meet ALARA standards for radiation dose reduction. INDICATION: Abdominal flank pain, greater on the right. COMPARISON: 12/31/2020. FINDINGS: There is mild dependent atelectasis and/or pneumonitis in the lung bases. Gallbladder is surgically absent. There is no evidence of focal hepatic or splenic abnormality. There is a small hiatal hernia. No pancreatic or adrenal gland lesion is identified. 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 No ureteric stone is identified. There is no evidence of bladder calculus. No free fluid is seen within the abdomen or pelvis. The appendix has a normal appearance. 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 Otherwise, no acute abnormality is identified within the abdomen or pelvis. Dictated on workstation # [id number] Dict: 07/17/21 1548 Trans: 07/17/21 1555 [id number] Interpreted by: CLAUDETTE ORTEGA MD Electronically signed by: Departure Impression Primary Impression: Flank pain Disposition: HOME, SELF-CARE Condition: Stable Departure-Patient Inst. Decision time for Depature: 16:53 Referrals: DAVON CASTELAN MD (PCP) Primary Care Physician Patient Instructions: Flank Pain (DC) Add. Discharge Instructions: Fortunately your kidney looked good and your labs are reassuring. It is possible you having a back spasm. I sent some pain medicine as well as nausea medicine to your pharmacy. Follow-up with your regular doctor if you are not improving in the next couple days Scripts Ondansetron (Ondansetron Odt) 4 Mg Tab.rapdis 4 MG PO Q6H PRN for NAUSEA/VOMITING-1ST LINE for 5 Days, #20 TAB Prov: JOHN NICHOLAS MD 07/17/21 Naproxen (Naprosyn) 500 Mg Tablet 500 MG PO BID for 7 Days, #14 TAB 0 Refills Prov: JOHN NICHOLAS MD 07/17/21 Cyclobenzaprine HCl (Cyclobenzaprine HCl) 10 Mg Tablet 10 MG PO TID PRN for SPASMS for 5 Days, #15 TAB Prov: JOHN NICHOLAS MD 07/17/21 Work/School Note: Work Release Form Date Seen in the Emergency Department: July 17, 2021 Return to Work: July 18, 2021 Restrictions: No Restrictions JOHN NICHOLAS MD July 17, 2021 15:30
[2021-07-17 15:39] LABS: BILIRUBIN,URINE NEGATIVE (NEGATIVE); GLUCOSE, URINE (UA) NEGATIVE (NEGATIVE); KETONES,URINE NEGATIVE (NEGATIVE); LEUKOCYTE ESTERASE ,URINE NEGATIVE (NEGATIVE); NITRITE,URINE NEGATIVE (NEGATIVE); PH,URINE 5.5 (5-9); PROTEIN,URINE NEGATIVE (NEGATIVE)
--- NOTE | 2021-07-17 15:55 | Diagnostic Imaging Report ---
PROCEDURE: CT abdomen and pelvis without contrast. TECHNIQUE: Multiple contiguous axial images were obtained through the abdomen and pelvis without the use of intravenous contrast. Auto Exposure Controls were utilized during the CT exam to meet ALARA standards for radiation dose reduction. INDICATION: Abdominal flank pain, greater on the right. COMPARISON: 12/31/2020. FINDINGS: There is mild dependent atelectasis and/or pneumonitis in the lung bases. Gallbladder is surgically absent. There is no evidence of focal hepatic or splenic abnormality. There is a small hiatal hernia. No pancreatic or adrenal gland lesion is identified. 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 No ureteric stone is identified. There is no evidence of bladder calculus. No free fluid is seen within the abdomen or pelvis. The appendix has a normal appearance. 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 Otherwise, no acute abnormality is identified within the abdomen or pelvis. Dictated by: Dictated on workstation # [id number]
[2021-07-17 16:04] LABS: BASOPHILS % (AUTO) 1 % (0-10); EOSINOPHILS # (AUTO) 0.1 10^3/uL (0.0-0.3); EOSINOPHILS % (AUTO) 1 % (0-10); HEMATOCRIT 48 % (35-52); HEMOGLOBIN 16.6 g/dL (11.5-16.0); LYMPHOCYTES # (AUTO) 3.2 10^3/uL (1.0-4.0); LYMPHOCYTES % (AUTO) 38 % (12-44); MEAN CORPUSCULAR HEMOGLOBIN 29 pg (25-34); MEAN CORPUSCULAR HGB CONC 35 g/dL (32-36); MEAN CORPUSCULAR VOLUME 84 fL (80-99); MEAN PLATELET VOLUME 10.3 fL (9.0-12.2); MONOCYTES # (AUTO) 0.6 10^3/uL (0.0-1.0); MONOCYTES % (AUTO) 7 % (0-12); NEUTROPHILS # (AUTO) 4.6 10^3/uL (1.8-7.8); NEUTROPHILS % (AUTO) 54 % (42-75); PLATELET COUNT 196 10^3/uL (130-400); WHITE BLOOD COUNT 8.5 10^3/uL (4.3-11.0)
[2021-07-17 16:10] LABS: BACTERIA,URINE NEGATIVE /HPF; COLOR,URINE DARK YELLOW; WBC,URINE 0-2 /HPF
[2021-07-17 16:11] LABS: CLARITY,URINE CLEAR
[2021-07-17 16:30] LABS: BILIRUBIN,TOTAL 0.3 MG/DL (0.1-1.0); CALCIUM 9.1 MG/DL (8.5-10.1); CREATININE SERUM 0.73 MG/DL (0.60-1.30); POTASSIUM 4.3 MMOL/L (3.6-5.0); TOTAL PROTEIN 6.4 GM/DL (6.4-8.2)
[2021-07-17] MEDS ORDERED: NAPR-1071 PO (16:55)
[2021-07-17] MEDS ORDERED: CYCLOBENZAPRINE 10 MG (FLEXERIL) TAB PO STA (16:55)
[2021-07-17] MEDS ORDERED: ONDA4TAB11 PO (16:55)
[2021-07-17] MEDS ORDERED: CYCL10TA25 PO (16:55)
[2021-07-17 17:05] VITALS: BP 103/72
== END 2021-07-17 17:05 | disposition home or self-care (01) ==
LOC: EDUNIT# 15:02 → ER FS 15:04
DX: R10.9 Unspecified abdominal pain (principal)
CPT/HCPCS: 36415; 74176; 80053; 81000; 83690; 85025

== ENCOUNTER 2021-08-20 18:03 | Emergency (ER) | payer MEDICAID ==
[~2021-08-20 18:03] MED LIST changes: +CYCL10TA25 PO; +NAPR-1071 PO; +ONDA4TAB11 PO
[2021-08-20] MEDS ORDERED: CYCLOBENZAPRINE 10 MG (FLEXERIL) TAB PO STA (18:13)
[2021-08-20] MEDS ORDERED: KETOROLAC 30 MG/ML VIAL IM ONE (18:15)
--- NOTE | 2021-08-20 18:23 | ED Back Pain ---
General Chief Complaint: Back Problems Stated Complaint: RT FLANK PAIN Source of Information: Patient Exam Limitations: No Limitations History of Present Illness Date Seen by Provider: Aug 20, 2021 Time Seen by Provider: 18:05 Initial Comments 56yoF with PMH of kidney stones coming in due to right flank pain. Intermittent over the past several weeks but worsening over the past couple of days. Sharp, comes across her abdomen and is mild to moderate. Nothing really seems to make it better. Denies and chest pain, SOA, n/v/d, weakness, numbness, dysuria, or any other concerns. She is worried her urine is slightly darker. Had a CT scheduled as an outpatient a couple days ago but wasn't able to make it. A new one is scheduled 2 days from now. Allergies and Home Medications Allergies Coded Allergies: Sulfa (Sulfonamide Antibiotics) (Verified Allergy, Unknown, 08/22/20) divalproex sodium (Verified Allergy, Unknown, 11/16/20) trazodone (Verified Allergy, Unknown, 11/16/20) Patient Home Medication List Home Medication List Reviewed: Yes Albuterol Sulfate (Ventolin Hfa) 1 Puff Puff, 2 PUFF INH Q4H PRN for SHORTNESS OF BREATH, (Reported) Entered as Reported by: ROSALIO TYSON on 01/03/21 0951 Budesonide/Formoterol Fumarate (Symbicort 80-4.5 Mcg Inhaler) 10.2 Gm Hfa.aer.ad, 2 EA IH BID, (Reported) Entered as Reported by: LAWRENCE PLUNKETT on 12/31/202045 Buspirone HCl (Buspirone HCl) 10 Mg Tablet, 10 MG PO BID PRN for ANXIETY, (Reported) Entered as Reported by: LAWRENCE PLUNKETT on 12/31/202045 Cyclobenzaprine HCl (Cyclobenzaprine HCl) 10 Mg Tablet, 10 MG PO TID PRN for SPASMS Prescribed by: JOHN NICHOLAS on 07/17/21 165 Cyclobenzaprine HCl (Cyclobenzaprine HCl) 10 Mg Tablet, 10 MG PO Q8H PRN for SPASMS Prescribed by: JOHN NICHOLAS on 08/20/21 184 Naproxen (Naprosyn) 500 Mg Tablet, 500 MG PO BID Prescribed by: JOHN NICHOLAS on 07/17/211654 Nicotine (Nicotine Patch) 1 Each Patch.td24, 1 EA TD DAILY, (Reported) Entered as Reported by: LAWRENCE PLUNKETT on 12/31/202045 Ondansetron (Ondansetron Odt) 4 Mg Tab.rapdis, 4 MG PO Q6H PRN for NAUSEA/VOMITING-1ST LINE Prescribed by: JOHN NICHOLAS on 07/17/211654 Prazosin HCl (Prazosin HCl) 2 Mg Capsule, 2 MG PO HS, (Reported) Entered as Reported by: LAWRENCE PLUNKETT on 12/31/202045 Sertraline HCl (Sertraline HCl) 100 Mg Tablet, 100 MG PO DAILY, (Reported) Entered as Reported by: LAWRENCE PLUNKETT on 12/31/202045 Ziprasidone HCl (Ziprasidone HCl) 60 Mg Capsule, 60 MG PO DAILY, (Reported) Entered as Reported by: LAWRENCE PLUNKETT on 12/31/202045 Review of Systems Constitutional: No fever EENTM: No blurred vision Respiratory: No cough Cardiovascular: No chest pain Gastrointestinal: No nausea, No vomiting Genitourinary: other (flank pain) Musculoskeletal: no symptoms reported Skin: no symptoms reported Psychiatric/Neurological: No Symptoms Reported All Other Systems Reviewed Negative Unless Noted: Yes Past Fbjvcsh-Xgfrve-Tlfzwn Hx Patient Social History Tobacco Use?: No Substance use?: No Alcohol Use?: No Pt feels they are or have been: No Immunizations Up To Date First/Initial COVID19 Vaccinat: Not currently vaccinated Second COVID19 Vaccination Alex: Not currently vaccinated Third COVID19 Vaccination Date: Not currently vaccinated Seasonal Allergies Seasonal Allergies: No Past Medical History Surgery/Hospitalization HX: COPD; Ashtma; Horseshoe kidney; Depression; Hysterectomy; Surgeries: Yes Gallbladder, Hysterectomy Respiratory: Yes Asthma, COPD Cardiac: No Neurological: No Genitourinary: No Gastrointestinal: No Musculoskeletal: No Endocrine: No HEENT: No Cancer: No Psychosocial: Yes Anxiety Integumentary: No Physical Exam Vital Signs Vital Signs - First Documented 08/20/21 18:17 Temp 36.4 Pulse 74 Resp 14 B/P (MAP) 129/75 (93) Pulse Ox 98 O2 Delivery Room Air Capillary Refill : Height, Weight, BMI Height: '" Weight: lbs. oz. kg; 36.00 BMI Method: General Appearance: No Apparent Distress, WD/WN HEENT: PERRL/EOMI, Normal ENT Inspection, Pharynx Normal Neck: Full Range of Motion, Normal Inspection, Non Tender, Supple Cardiovascular: Regular Rate, Rhythm, No Edema, Normal Peripheral Pulses Respiratory: Chest Non Tender, Lungs Clear, Normal Breath Sounds, No Accessory Muscle Use, No Respiratory Distress Gastrointestinal: Normal Bowel Sounds, Non Tender, Soft; No Distended, No Guarding Back: Normal Inspection, No Vertebral Tenderness, CVA Tenderness (R), Other (muscular tenderness on the right with twisting) Extremity: Normal Capillary Refill, Normal Inspection, Normal Range of Motion, Non Tender, No Calf Tenderness, No Pedal Edema, Other (negative straight leg raise, normal neurovascular exam in extremities) Neurologic/Psychiatric: Alert, No Motor/Sensory Deficits, Normal Mood/Affect, Other (normal gait) Skin: Normal Color, Warm/Dry Lymphatic: No Adenopathy Progress/Results/Core Measures Results/Orders Lab Results Laboratory Tests Test 08/20/21 18:25 Range/Units Urine Color DARK YELLOW Urine Clarity CLEAR Urine pH 5.5 5-9 Urine Specific [place] >=1.030 1.016-1.022 Urine Protein NEGATIVE NEGATIVE Urine Glucose (UA) NEGATIVE NEGATIVE Urine Ketones NEGATIVE NEGATIVE Urine Nitrite NEGATIVE NEGATIVE Urine Bilirubin NEGATIVE NEGATIVE Urine Urobilinogen 0.2 < = 1.0 MG/DL Urine Leukocyte Esterase NEGATIVE NEGATIVE Urine RBC (Auto) TRACE-I H NEGATIVE Urine RBC NONE /HPF Urine WBC NONE /HPF Urine Squamous Epithelial Cells 25-50 H /HPF Urine Crystals PRESENT H /LPF Urine Calcium Oxalate Crystals LARGE H /LPF Urine Bacteria FEW H /HPF Urine Casts NONE /LPF Urine Mucus LARGE H /LPF Urine Culture Indicated NO My Orders Orders - JOHN NICHOLAS MD Ua Culture If Indicated (08/20/21 18:13) Ketorolac Injection (Toradol Injection) (08/20/21 18:15) Cyclobenzaprine Tablet (Flexeril Tablet) (08/20/21 18:13) Ct Abdomen/Pelvis Wo (08/20/21 18:13) Medications Given in ED Current Medications Medications Dose Ordered Sig/Karla Route Start Time Stop Time Status Last Admin Dose Admin Ketorolac Tromethamine 15 mg ONCE ONCE IM 08/20/21 18:15 08/20/21 18:18 DC 08/20/21 18:27 15 MG Vital Signs/I&O 08/20/21 18:17 Temp 36.4 Pulse 74 Resp 14 B/P (MAP) 129/75 (93) Pulse Ox 98 O2 Delivery Room Air Progress Progress Note : Progress Note 56-year-old female with above history coming in due to right flank pain. Physical exam more consistent with muscular cause, but does have prior history of kidney stones. CT abdomen pelvis without ureterolithiasis or hydronephrosis. Urinalysis with a dirty sample that I would not treat off of. We will follow- up on the micro. She is not having any dysuria or urinary frequency at this time. Given Toradol and Flexeril with improvement in symptoms. I believe she is stable for discharge with outpatient follow-up. She was sent home with strict return precautions Diagnostic Imaging Diagonstic Imaging: CT (abd/pelv) Comments NAME: LUCIEN RICHARDSON [facility] REC#: [id number] PT STATUS: REG ER : 1965 PHYSICIAN: JOHN NICHOLAS MD ADMIT DATE: 08/20/21/ER FS Draft Date of Exam:08/20/21 CT ABDOMEN/PELVIS WO INDICATION: Right flank pain, history of horseshoe kidney. TECHNIQUE: Multiple contiguous axial images were obtained through the abdomen and pelvis without the use of intravenous contrast. Auto Exposure Controls were utilized during the CT exam to meet ALARA standards for radiation dose reduction. COMPARISON: 07/17/2021. FINDINGS: Visualized portions of the lung bases show some lingular scarring or atelectasis. There is no consolidation or pleural fluid. There is no free intraperitoneal air. The liver shows no focal lesion. Gallbladder is surgically absent. Spleen, adrenals and pancreas are unremarkable. Patient has a horseshoe kidney. No renal stones are seen on the right side. There is a tiny renal stone in the lower pole of the left side. There is no hydronephrosis or ureteral stone. There is no retroperitoneal mass or adenopathy. There is no ascites. Appendix appears normal. There is no sign of bowel obstruction or focal bowel wall thickening. The patient appears to have had prior hysterectomy. IMPRESSION: 1. Horseshoe kidney, no hydronephrosis or ureteral stone. Tiny nonocclusive stone in the left side in the calyceal region. 2. Postop changes status post hysterectomy. No overt bowel obstruction or bowel wall thickening or acute process. Evidence of previous cholecystectomy. Dictated on workstation # [id number] Dict: 08/20/21 1834 Trans: 08/20/21 1840 PJE [id number] Interpreted by: CARMELINA WALLACE MD Electronically signed by: Departure Impression Primary Impression: Flank pain Disposition: HOME, SELF-CARE Condition: Stable Departure-Patient Inst. Decision time for Depature: 18:45 Referrals: DAVON CASTELAN MD (PCP) Primary Care Physician Patient Instructions: Back Muscle Strain (DC) Add. Discharge Instructions: Your CT scan looked good with no blocking stone in your kidney on the right. I believe this is likely muscular strain and spasm on your right flank. 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 Follow-up with your regular doctor if things are not improving. Scripts Lidocaine (Lidocaine 5% Patch) 5 % Adh..patch 1 EACH TP Q12H PRN for Neuropathic pain MDD 2 for 7 Days, #14 PATCH 2 patches max for 12 hours, then 12 hours patch-free period. Prov: JOHN NICHOLAS MD 08/20/21 Cyclobenzaprine HCl (Cyclobenzaprine HCl) 10 Mg Tablet 10 MG PO Q8H PRN for SPASMS for 5 Days, #15 TAB 0 Refills Prov: JOHN NICHOLAS MD 08/20/21 Work/School Note: Work Release Form Date Seen in the Emergency Department: Aug 20, 2021 Return to Work: Aug 22, 2021 Restrictions: No Restrictions JOHN NICHOLAS MD Aug 20, 2021 18:23
[2021-08-20 18:27] LABS: BILIRUBIN,URINE NEGATIVE (NEGATIVE); CLARITY,URINE CLEAR; GLUCOSE, URINE (UA) NEGATIVE (NEGATIVE); KETONES,URINE NEGATIVE (NEGATIVE); LEUKOCYTE ESTERASE ,URINE NEGATIVE (NEGATIVE); NITRITE,URINE NEGATIVE (NEGATIVE); PH,URINE 5.5 (5-9); PROTEIN,URINE NEGATIVE (NEGATIVE)
[2021-08-20 18:31] LABS: BACTERIA,URINE FEW /HPF; CALCIUM OXALATE CRYSTALS,UR LARGE /LPF; COLOR,URINE DARK YELLOW; SQUAMOUS EPITHELIAL CELL,UR 25-50 /HPF
--- NOTE | 2021-08-20 18:42 | Diagnostic Imaging Report ---
INDICATION: Right flank pain, history of horseshoe kidney. TECHNIQUE: Multiple contiguous axial images were obtained through the abdomen and pelvis without the use of intravenous contrast. Auto Exposure Controls were utilized during the CT exam to meet ALARA standards for radiation dose reduction. COMPARISON: 07/17/2021. FINDINGS: Visualized portions of the lung bases show some lingular scarring or atelectasis. There is no consolidation or pleural fluid. There is no free intraperitoneal air. The liver shows no focal lesion. Gallbladder is surgically absent. Spleen, adrenals and pancreas are unremarkable. Patient has a horseshoe kidney. No renal stones are seen on the right side. There is a tiny renal stone in the lower pole of the left side. There is no hydronephrosis or ureteral stone. There is no retroperitoneal mass or adenopathy. There is no ascites. Appendix appears normal. There is no sign of bowel obstruction or focal bowel wall thickening. The patient appears to have had prior hysterectomy. IMPRESSION: 1. Horseshoe kidney, no hydronephrosis or ureteral stone. Tiny nonocclusive stone in the left side in the calyceal region. 2. Postop changes status post hysterectomy. No overt bowel obstruction or bowel wall thickening or acute process. Evidence of previous cholecystectomy. Dictated by: Dictated on workstation # [id number]
[2021-08-20] MEDS ORDERED: CYCL10TA25 PO (18:43)
[2021-08-20] MEDS ORDERED: LIDO700A45 TP (18:46)
[2021-08-20 18:51] VITALS: BP 129/75
== END 2021-08-20 18:47 | disposition home or self-care (01) ==
LOC: EDUNIT# 18:03 → ER FS 18:05
DX: R10.9 Unspecified abdominal pain (principal); Z90.49 Acquired absence of other specified parts of digestive tract; Z28.310 Unvaccinated for COVID-19
CPT/HCPCS: 74176; 81000

== ENCOUNTER → 2021-10-10 | Outpatient (CLI) | payer MEDICAID ==
[~2021-10-10] MED LIST changes: +LIDO700A45 TP
--- NOTE | 2021-10-10 13:30 | Diagnostic Imaging Report ---
EXAMINATION: CT chest without contrast. TECHNIQUE: Multiple contiguous axial images were obtained through the chest without the use of intravenous contrast. All CT scans use one or more of the following dose optimizing techniques: automated exposure control, MA and/or KvP adjustment based on patient size and exam type or iterative reconstruction. HISTORY: Chest pain COMPARISON: 12/31/2020 FINDINGS: There is no edema or pneumonia. No pleural effusion. No pneumothorax. No suspicious nodules. There are mild scattered areas of atelectasis. There is mosaic perfusion in keeping with small vessels or small airways disease. There is no axillary or supraclavicular lymphadenopathy. There is no mediastinal lymphadenopathy. Heart size is normal. There are no coronary artery calcifications. No pericardial effusion. Aorta is normal in caliber. Limited views of the upper abdomen show the gallbladder absent. There are no suspicious osseus lesions. IMPRESSION: 1. No acute abnormality in the chest. Dictated by: Dictated on workstation # [id number]
== END ==
LOC: RAD FS 10:52
PROVIDERS: ATTEND Family Medicine
DX: R07.81 Pleurodynia (principal); R07.9 Chest pain, unspecified
CPT/HCPCS: 71250

== ENCOUNTER 2021-11-28 09:48 | Emergency (ER) | payer MEDICAID ==
[~2021-11-28] VITALS: Ht 147.3 cm; Wt 74.0 kg
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
[2021-11-28 10:44] LABS: BASOPHILS % (AUTO) 1 % (0-10); EOSINOPHILS % (AUTO) 1 % (0-10); HEMATOCRIT 49 % (35-52); HEMOGLOBIN 16.9 g/dL (11.5-16.0); LYMPHOCYTES # (AUTO) 1.8 10^3/uL (1.0-4.0); LYMPHOCYTES % (AUTO) 40 % (12-44); MEAN CORPUSCULAR HEMOGLOBIN 29 pg (25-34); MEAN CORPUSCULAR HGB CONC 35 g/dL (32-36); MEAN CORPUSCULAR VOLUME 83 fL (80-99); MEAN PLATELET VOLUME 10.7 fL (9.0-12.2); MONOCYTES # (AUTO) 0.4 10^3/uL (0.0-1.0); MONOCYTES % (AUTO) 9 % (0-12); NEUTROPHILS # (AUTO) 2.3 10^3/uL (1.8-7.8); NEUTROPHILS % (AUTO) 49 % (42-75); PLATELET COUNT 171 10^3/uL (130-400); WHITE BLOOD COUNT 4.6 10^3/uL (4.3-11.0)
--- NOTE | 2021-11-28 11:04 | Diagnostic Imaging Report ---
History: Cough COMPARISON: 08/22/2020 TECHNIQUE: Frontal view the chest FINDINGS: There is a linear opacity in the left midlung. No pleural effusion or pneumothorax is seen. The cardiac silhouette is normal in size. There are old left-sided rib fractures. IMPRESSION: 1. Linear opacity in the left midlung, may represent atelectasis or infiltrate. Dictated by: Dictated on workstation # [id number]
[2021-11-28 11:05] LABS: BILIRUBIN,TOTAL 0.5 MG/DL (0.1-1.0); BUN/CREATININE RATIO 11; CARBON DIOXIDE 21 MMOL/L (21-32); CHLORIDE 102 MMOL/L (98-107); CREATININE SERUM 0.74 MG/DL (0.60-1.30); GFR ESTIMATED 95; GLUCOSE 108 MG/DL (70-105); POTASSIUM 3.2 MMOL/L (3.6-5.0); SODIUM 137 MMOL/L (135-145)
[2021-11-28 11:06] LABS: ACETAMINOPHEN < 10 UG/ML (10-30); ALANINE AMINOTRANSFERASE 10 U/L (0-55); ALBUMIN 3.8 GM/DL (3.2-4.5); ALKALINE PHOSPHATASE 75 U/L (40-136); SALICYLATE < 0.3 MG/DL (5.0-20.0); TOTAL PROTEIN 6.8 GM/DL (6.4-8.2)
[2021-11-28 11:17] LABS: CLARITY,URINE CLOUDY; COLOR,URINE YELLOW; PH,URINE 5.5 (5-9)
[2021-11-28 11:18] LABS: GLUCOSE, URINE (UA) NEGATIVE (NEGATIVE); KETONES,URINE NEGATIVE (NEGATIVE); NITRITE,URINE NEGATIVE (NEGATIVE); PROTEIN,URINE TRACE (NEGATIVE)
[2021-11-28 11:21] LABS: BACTERIA,URINE FEW /HPF; BILIRUBIN,URINE 1+ (NEGATIVE); LEUKOCYTE ESTERASE ,URINE NEGATIVE (NEGATIVE); WBC,URINE 0-2 /HPF
[2021-11-28 11:22] LABS: AMPHETAMINE SCREEN, URINE NEGATIVE (NEGATIVE); BARBITURATE SCREEN URINE NEGATIVE (NEGATIVE); BENZODIAZEPINES SCREEN URINE NEGATIVE (NEGATIVE); CANNABINOID SCREEN, URINE POSITIVE (NEGATIVE); COCAINE SCREEN URINE NEGATIVE (NEGATIVE); METHADONE STAT NEGATIVE (NEGATIVE); OPIATE SCREEN URINE NEGATIVE (NEGATIVE); OXYCODONE STAT NEGATIVE (NEGATIVE); PROPOXYPHENE STAT NEGATIVE (NEGATIVE); TRICYCLIC ANTIDEPRESSANTS SCRE NEGATIVE (NEGATIVE)
[2021-11-28] MEDS ORDERED: KCL 20 MEQ TAB (K-DUR) PO ONE (11:45)
[2021-11-28] MEDS ORDERED: NIRM1TAB PO (14:03)
[2021-11-28 14:16] VITALS: BP 144/87
== END 2021-11-28 14:16 | disposition home or self-care (01) ==
LOC: EDUNIT# 09:48 → ER FS 09:50
DX: R45.851 Suicidal ideations (principal); U07.1 COVID-19; Z86.59 Personal history of other mental and behavioral disorders; Z28.310 Unvaccinated for COVID-19
CPT/HCPCS: 36415; 71045; 80053; 80306; 81000; 85025; 87636; 99284; G0480 ×3; 80320; 80329